=== PATIENT | female | born 1995 | race Caucasian/White ===

== ENCOUNTER 2016-11-13 23:37 | Emergency (ER) | payer SELFPAY ==
[2016-11-13] MEDS ORDERED: Pantoprazole 40 MG Vial IVPUSH ONE (23:44)
[2016-11-13] MEDS ORDERED: Sodium Chloride 0.9% 1,000 ML IV ONE (23:44)
--- NOTE | 2016-11-13 23:44 | EDM.PDOC ---
ED HPI GENERAL MEDICAL PROBLEM - General Stated Complaint: PT HAS STOMACH PAINS Time Seen by Provider: 11/13/16 23:43 Source of Information: Reports: Patient - History of Present Illness INITIAL COMMENTS - FREE TEXT/NARRATIVE: HISTORY AND PHYSICAL: History of present illness: [] Patient presents with diffuse abdominal pain she rates 5/10 on arrival, pain had resolved by discharge 0/10 She is sedated today since her last bowel movement no fever nausea vomiting chills sweats chest pain shortness breath headache dizziness or palpitations no urine symptoms Review of systems: As per history of present illness and below otherwise all systems reviewed and negative. Past medical history: As per history of present illness and as reviewed below otherwise noncontributory. Surgical history: As per history of present illness and as reviewed below otherwise noncontributory. Social history: No reported history of drug or alcohol abuse. Family history: As per history of present illness and as reviewed below otherwise noncontributory. Physical exam: HEENT: Atraumatic, normocephalic, pupils reactive, negative for conjunctival pallor or scleral icterus, mucous membranes moist, throat clear, neck supple, nontender, trachea midline. Lungs: Clear to auscultation, breath sounds equal bilaterally, chest nontender. Heart: S1S2, regular, negative for clicks, rubs, or JVD. Abdomen: Soft, nondistended, patient was tender in the right lower quadrant no guarding or rebound tenderness Negative for masses or hepatosplenomegaly. Negative for costovertebral tenderness. Pelvis: Stable nontender. Genitourinary: Deferred. Rectal: Deferred. Extremities: Atraumatic, negative for cords or calf pain. Neurovascular unremarkable. Neuro: Awake, alert, oriented. Cranial nerves II through XII unremarkable. Cerebellum unremarkable. Motor and sensory unremarkable throughout. Exam nonfocal. Diagnostics: [] Lab as below CT abdomen pelvis with contrast Therapeutics: [] 1 L normal saline bolus Protonix 80 mg IV Uwif-[id number]-avynozd symptomatic bowel care discussed At term double strength by mouth twice a day #20 no refill Impression: [] Retained stool in ascending colon Clinically mesenteric adenitis-with supporting evidence on CT Definitive disposition and diagnosis as appropriate pending reevaluation and review of above. abdomen Pain Score (Numeric/FACES): 6 - Related Data Allergies Allergy/AdvReac Type Severity Reaction Status Date / Time venom-honey bee Allergy Swelling Verified 11/13/16 23:47 [bee venom (honey bee)] Home Meds: Home Meds . [No Known Home Meds] 04/16/15 [History] Past Medical History HEENT History: Reports: None Cardiovascular History: Reports: None Respiratory History: Reports: None Gastrointestinal History: Reports: None Genitourinary History: Reports: Other (See Below) Other Genitourinary History: right breast tissue removal OBSTETRICS GYN History: Reports: None Musculoskeletal History: Reports: None Neurological History: Reports: None Psychiatric History: Reports: Anxiety Other Psychiatric History: Borderline split personality Endocrine/Metabolic History: Reports: None Hematologic History: Reports: None Dermatologic History: Reports: None - Infectious Disease History Infectious Disease History: Reports: Chicken Pox - Past Surgical History HEENT Surgical History: Reports: Adenoidectomy, Tonsillectomy Social & Family History - Family History Family Medical History: Noncontributory - Tobacco Use Smoking Status *Q: Current Some Day Smoker Years of Tobacco use: 6 Packs/Tins Daily: 0.5 - Caffeine Use Caffeine Use: Reports: None - Recreational Drug Use Recreational Drug Use: No ED ROS GENERAL - Review of Systems Review Of Systems: ROS reveals no pertinent complaints other than HPI. ED EXAM, GENERAL - Physical Exam Exam: See Below Course - Vital Signs Last Recorded V/S: Last Vital Signs Temp 36.3 C 11/13/16 23:47 Pulse 95 11/13/16 23:47 Resp 16 11/13/16 23:47 BP 155/81 H 11/13/16 23:47 Pulse Ox 98 11/13/16 23:47 - Orders/Labs/Meds Orders: Active Orders 24 hr Category Date Time Status Abdomen Pelvis w Cont [CT] Stat Exams 11/14/16 00:43 Taken Labs: Laboratory Tests 11/13/16 11/13/16 11/14/16 Range/Units 23:55 23:55 00:50 WBC 12.52 H (4.0-11.0) K/uL RBC 4.73 (4.30-5.90) M/uL Hgb 13.3 (12.0-16.0) g/dL Hct 39.5 (36.0-46.0) % MCV 83.5 (80.0-98.0) fL MCH 28.1 (27.0-32.0) pg MCHC 33.7 (31.0-37.0) g/dL RDW Std Deviation 39.0 (28.0-62.0) fl RDW Coeff of Jose 13 (11.0-15.0) % Plt Count 298 (150-400) K/uL MPV 10.10 (7.40-12.00) fL Neut % (Auto) 73.7 (48.0-80.0) % Lymph % (Auto) 20.0 (16.0-40.0) % Morris % (Auto) 5.8 (0.0-15.0) % Eos % (Auto) 0.3 (0.0-7.0) % Baso % (Auto) 0.2 (0.0-1.5) % Neut # (Auto) 9.2 H (1.4-5.7) K/uL Lymph # (Auto) 2.5 H (0.6-2.4) K/uL Morris # (Auto) 0.7 (0.0-0.8) K/uL Eos # (Auto) 0.0 (0.0-0.7) K/uL Baso # (Auto) 0.0 (0.0-0.1) K/uL Nucleated RBC % 0.0 /100WBC Nucleated RBCs # 0 K/uL Sodium 140 (136-146) mmol/L Potassium 3.4 L (3.5-5.1) mmol/L Chloride 109 (98-110) mmol/L Carbon Dioxide 20 L (21-31) mmol/L BUN 13 (6.0-23.0) mg/dL Creatinine 0.8 (0.6-1.5) mg/dL Est Cr Clr Drug Dosing 105.01 mL/min Estimated GFR (MDRD) > 60.0 ml/min Glucose 141 H (60-110) mg/dL Calcium 9.4 (8.8-10.8) mg/dL Total Bilirubin 0.3 (0.1-1.5) mg/dL AST 13 (5-40) IU/L ALT 13 (8-54) IU/L Alkaline Phosphatase 76 (40-150) Total Protein 7.2 (6.0-8.0) g/dL Albumin 4.2 (3.5-5.0) g/dL Globulin 3.0 (2.0-3.5) g/dL Albumin/Globulin Ratio 1.4 (1.3-2.8) Amylase 33 (10-90) U/L Lipase < 8 (7-80) U/L Urine Color YELLOW Urine Appearance CLEAR Urine pH 6.0 (5.0-8.0) Ur Specific [place] 1.015 (1.001-1.035) Urine Protein NEGATIVE (NEGATIVE) mg/dL Urine Glucose (UA) NEGATIVE (NEGATIVE) mg/dL Urine Ketones NEGATIVE (NEGATIVE) mg/dL Urine Occult Blood LARGE H (NEGATIVE) Urine Nitrite NEGATIVE (NEGATIVE) Urine Bilirubin NEGATIVE (NEGATIVE) Urine Urobilinogen 0.2 (<2.0) EU/dL Ur Leukocyte Esterase TRACE (NEGATIVE) Urine RBC 90-100 (0-2/HPF) Urine WBC 2-3 (0-5/HPF) Ur Epithelial Cells FEW (NONE-FEW) Urine Bacteria FEW (NEGATIVE) Urine Mucus LIGHT (NONE-MOD) Urine HCG, Qual (NEGATIVE) 11/14/16 Range/Units 00:50 WBC (4.0-11.0) K/uL RBC (4.30-5.90) M/uL Hgb (12.0-16.0) g/dL Hct (36.0-46.0) % MCV (80.0-98.0) fL MCH (27.0-32.0) pg MCHC (31.0-37.0) g/dL RDW Std Deviation (28.0-62.0) fl RDW Coeff of Jose (11.0-15.0) % Plt Count (150-400) K/uL MPV (7.40-12.00) fL Neut % (Auto) (48.0-80.0) % Lymph % (Auto) (16.0-40.0) % Morris % (Auto) (0.0-15.0) % Eos % (Auto) (0.0-7.0) % Baso % (Auto) (0.0-1.5) % Neut # (Auto) (1.4-5.7) K/uL Lymph # (Auto) (0.6-2.4) K/uL Morris # (Auto) (0.0-0.8) K/uL Eos # (Auto) (0.0-0.7) K/uL Baso # (Auto) (0.0-0.1) K/uL Nucleated RBC % /100WBC Nucleated RBCs # K/uL Sodium (136-146) mmol/L Potassium (3.5-5.1) mmol/L Chloride (98-110) mmol/L Carbon Dioxide (21-31) mmol/L BUN (6.0-23.0) mg/dL Creatinine (0.6-1.5) mg/dL Est Cr Clr Drug Dosing mL/min Estimated GFR (MDRD) ml/min Glucose (60-110) mg/dL Calcium (8.8-10.8) mg/dL Total Bilirubin (0.1-1.5) mg/dL AST (5-40) IU/L ALT (8-54) IU/L Alkaline Phosphatase (40-150) Total Protein (6.0-8.0) g/dL Albumin (3.5-5.0) g/dL Globulin (2.0-3.5) g/dL Albumin/Globulin Ratio (1.3-2.8) Amylase (10-90) U/L Lipase (7-80) U/L Urine Color Urine Appearance Urine pH (5.0-8.0) Ur Specific [place] (1.001-1.035) Urine Protein (NEGATIVE) mg/dL Urine Glucose (UA) (NEGATIVE) mg/dL Urine Ketones (NEGATIVE) mg/dL Urine Occult Blood (NEGATIVE) Urine Nitrite (NEGATIVE) Urine Bilirubin (NEGATIVE) Urine Urobilinogen (<2.0) EU/dL Ur Leukocyte Esterase (NEGATIVE) Urine RBC (0-2/HPF) Urine WBC (0-5/HPF) Ur Epithelial Cells (NONE-FEW) Urine Bacteria (NEGATIVE) Urine Mucus (NONE-MOD) Urine HCG, Qual NEGATIVE (NEGATIVE) Meds: Medications Discontinued Medications Generic Name Dose Route Start Last Admin Trade Name Freq PRN Reason Stop Dose Admin Sodium Chloride 1,000 mls @ 999 mls/hr 11/13/16 23:44 11/13/16 23:56 Normal Saline IV 11/14/16 00:44 999 mls/hr STAT ONE Administration Iopamidol 100 ml 11/14/16 01:09 11/14/16 01:34 Isovue-370 (76%) IVPUSH 11/14/16 01:10 100 ml ONETIME STA Administration Pantoprazole Sodium 80 mg 11/13/16 23:44 11/13/16 23:56 Protonix Iv IVPUSH 11/13/16 23:45 80 mg .BOLUS ONE Administration Departure - Departure Time of Disposition: 02:08 Disposition: Home, Self-Care 01 Condition: good Clinical Impression: Mesenteric adenitis Abdominal pain Qualifiers: Abdominal location: right lower quadrant Qualified Code(s): R10.31 - Right lower quadrant pain - Discharge Information Additional Instructions: Return if symptoms persist or worsen or fever nausea vomiting chills sweats despite antibiotics Again MiraLax 17 g daily may benefit Gpwu-wjw-zkfafty treatments such as fleets enemas, glycerin suppositories to be used as needed Followup with primary care in 2 weeks sooner as needed Fabiola Tyson [facility] - Primary Care [address] [place] [id number] The following information is given to patients seen in the emergency department who are being discharged to home. This information is to outline your options for follow-up care. We provide all patients seen in our emergency department with a follow-up referral. The need for follow-up, as well as the timing and circumstances, are variable depending upon the specifics of your emergency department visit. If you don't have a primary care physician on staff, we will provide you with a referral. We always advise you to contact your personal physician following an emergency department visit to inform them of the circumstance of the visit and for follow-up with them and/or the need for any referrals to a consulting specialist. The emergency department will also refer you to a specialist when appropriate. This referral assures that you have the opportunity for follow-up care with a specialist. All of these measure are taken in an effort to provide you with optimal care, which includes your follow-up. Under all circumstances we always encourage you to contact your private physician who remains a resource for coordinating your care. When calling for follow-up care, please make the office aware that this follow-up is from your recent emergency room visit. If for any reason you are refused follow-up, please contact the [facility] emergency department at and asked to speak to the emergency department charge nurse. - My Orders Last 24 Hours: My Active Orders 11/14/16 00:43 Abdomen Pelvis w Cont [CT] Stat - Assessment/Plan Last 24 Hours: My Active Orders 11/14/16 00:43 Abdomen Pelvis w Cont [CT] Stat
[2016-11-14 00:35] LABS: CHLORIDE,CL 109 mmol/L (98-110); SODIUM,NA 140 mmol/L (136-146)
[2016-11-14] MEDS ORDERED: Iopamidol 755 Mg/ML 100 ML Bottle IVPUSH STA (01:09)
[2016-11-14] MEDS ORDERED: Sulfamethoxazole/Trimethoprim 800-160 MG Tab PO ONE (02:10)
[2016-11-14 02:29] VITALS: BP 133/74
--- NOTE | 2016-11-14 12:16 | CT ---
EXAM DATE: 11/13/16 PATIENT'S AGE: 21 Patient: LIZZY JAMES Facility: [place], [place] Site . Site : 1995 Study: CT Abdomen/Pelvis [id number] 1:34:22 AM Ordering Physician: Swetha Barth Final Report: INDICATION: Right lower quadrant pain TECHNIQUE: CT abdomen and pelvis acquired with IV contrast. COMPARISON: 04/16/2015 FINDINGS: Lower chest: Unremarkable. Liver: Unremarkable. Spleen: Unremarkable. Pancreas: Unremarkable. Gallbladder and bile ducts: Unremarkable. Kidneys: Unremarkable. Adrenal glands: Unremarkable. GI tract: Retained stool involving the cecum and ascending colon. . Appendix is normal. Vascular structures: Unremarkable. Lymph nodes: Subcentimeter lymph nodes right lower quadrant. Miscellaneous: Unremarkable. No free air or significant free fluid. Pelvic Organs: Unremarkable. Bones: Unremarkable for age. IMPRESSION: Normal appendix. Retained stool involving the cecum and ascending colon. Sub centimeters lymph nodes right lower quadrant. Correlate with mesenteric adenitis clinically. Dictated by Sincere Buckley MD @ 11/14/2016 1:52:39 AM Dictated by: Sincere Buckley MD @ 11/14/2016 01:52:50 (Electronic Signature) Report Signed by Proxy. [facility]
== END 2016-11-14 02:30 | disposition home or self-care (01) ==
LOC: MW.ED 23:37
DX: I88.0 Nonspecific mesenteric lymphadenitis (principal); K59.00 Constipation, unspecified; F17.210 Nicotine dependence, cigarettes, uncomplicated; Z91.030 Bee allergy status; Z98.890 Other specified postprocedural states
CPT/HCPCS: 36415; 74177; 80053; 81001; 81025; 82150; 83690; 85025; 96361; 96374; 99284; C9113; J7040; Q9967

== ENCOUNTER 2019-01-30 15:52 | Inpatient (IN) | payer BC ==
[2019-01-30] MEDS ORDERED: Methylergonovine 0.2 MG/1 ML Amp IM PRN (16:55)
[2019-01-30] MEDS ORDERED: Tranexamic Acid 1,000 MG in Sodium Chloride 0.9% 100 ML IV PRN (16:55)
[2019-01-30] MEDS ORDERED: Sodium Chloride 0.9% 10 ML SDV IV PRN (16:55)
[2019-01-30] MEDS ORDERED: Butorphanol 1 MG/ML SDV IVPUSH PRN (16:55)
[2019-01-30] MEDS ORDERED: Sodium Chloride 0.9% 10 ML Syringe FLUSH PRN (16:55)
[2019-01-30] MEDS ORDERED: Misoprostol 200 MCG Tab PO PRN (16:55)
[2019-01-30] MEDS ORDERED: Nalbuphine 10 MG/1 ML Vial IVPUSH PRN (16:55)
[2019-01-30] MEDS ORDERED: Lidocaine 1% 50 ML MDV INJECT PRN (16:55)
[2019-01-30] MEDS ORDERED: Sodium Chloride 0.9% 2.5 ML Syringe FLUSH PRN (16:55)
[2019-01-30] MEDS ORDERED: Carboprost Tromethamine 250 MCG/1 ML Amp IM PRN (16:55)
[2019-01-30] MEDS ORDERED: Water For Irrigation,Sterile 1,000 ML Container IRR PRN (16:55)
[2019-01-30] MEDS ORDERED: Oxytocin/0.9 % Sodium Chloride 30 UNIT/500 ML BAG IV SCH (17:00)
--- NOTE | 2019-01-30 17:11 | PCM.LDHP ---
L&D History of Present Illness - General Date of Service: 01/30/19 Admit Problem/Dx: Patient Status Order with Admit Dx/Problem 01/30/19 16:55 Patient Status [ADT] Routine Admission Diagnosis/Problem Admission Diagnosis/Problem - planned 01/30/19 17:06 23 yo EDC 02/06/2019 39 0/7wks, comes due to SROM clear fluid at 1400 today. O+, RI, GBS pos. Declines any antibiotic for the GBS. Disc the risk and benefits of them for the health of her . Source of Information: Patient History Limitations: Reports: No Limitations - History of Present Illness Timing/Duration: Reports: minutes: Pain Score: 0 Improves with: Reports: None Worsens with: Reports: None Associated Symptoms: Reports: vaginal fluid - Related Data Allergies/Adverse Reactions: Allergies Allergy/AdvReac Type Severity Reaction Status Date / Time venom-honey bee Allergy Swelling Verified 01/30/19 16:49 [bee venom (honey bee)] Home Medications: Home Meds . 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 Musculoskeletal History: Reports: None Neurological History: Reports: None Psychiatric History: Reports: Anxiety Other Psychiatric History: Borderline split personality Endocrine/Metabolic History: Reports: None Hematologic History: Reports: None Immunologic History: Reports: None Oncologic (Cancer) History: Reports: None Dermatologic History: Reports: None - Infectious Disease History Infectious Disease History: Reports: Chicken Pox - Past Surgical History HEENT Surgical History: Reports: Adenoidectomy, Tonsillectomy Social & Family History - Family History Family Medical History: Noncontributory - Caffeine Use Caffeine Use: Reports: None H&P Review of Systems - Review of Systems: Review Of Systems: See Below General: Reports: No Symptoms HEENT: Reports: No Symptoms Pulmonary: Reports: No Symptoms Cardiovascular: Reports: No Symptoms Gastrointestinal: Reports: No Symptoms Genitourinary: Reports: No Symptoms Musculoskeletal: Reports: No Symptoms Skin: Reports: No Symptoms Psychiatric: Reports: No Symptoms Neurological: Reports: No Symptoms Hematologic/Lymphatic: Reports: No Symptoms Immunologic: Reports: No Symptoms L&D Exam - Exam Exam: See Below - Vital Signs Weight: 123.377 kg - OB Specific Contraction Intensity: Mild Movement: Active Heart Tones: Present Heart Tones per Min: 150 Heart Rate (FHR) Variability: Moderate (6-25 bmp) Presentation: Vertex - Townsend Score Townsend Score Cervix Position: Anterior Townsend Score Consistency: Soft Townsend Score Effacement: >80% Townsend Score Dilation: 3-4 cm Townsend Score 's Station: -2 Townsend Score Total: 10 - Exam General: Alert, Oriented, Cooperative HEENT: Hearing Intact Lungs: Normal Respiratory Effort GI/Abdominal Exam: Soft, Non-Tender Rectal Exam: Deferred Genitourinary: Deferred, Cervical fluid Back Exam: Full Range of Motion Extremities: Normal Range of Motion, Non-Tender, No Pedal Edema Skin: Warm, Dry, Intact Neurological: Cranial Nerves Intact, Strength Equal Bilateral, Normal Speech, Normal Tone Psychiatric: Alert, Normal Affect, Normal Mood - Problem List (1) Supervision of normal IUP (intrauterine ) in primigravida SNOMED Code(s): 95332044, 788546237, 401720784, 752569154 ICD Code: Z34.00 - ENCNTR FOR SUPRVSN OF NORMAL FIRST , UNSP TRIMESTER Status: Acute Priority: High Current Visit: Yes Qualifiers: Trimester: third trimester Qualified Code(s): Z34.03 - Encounter for supervision of normal first , third trimester (2) SROM (spontaneous rupture of membranes) SNOMED Code(s): 975577740 ICD Code: [id number] - Status: Acute Priority: High Current Visit: Yes Problem List Initiated/Reviewed/Updated: Yes Orders Last 24hrs: Active Orders 24 hr Category Date Time Status Patient Status [ADT] Routine ADT 01/30/19 16:55 Active Heart Tones [RC] CONTINUOUS Care 01/30/19 16:55 Active Non Stress Test [RC] PER UNIT ROUTINE Care 01/30/19 16:55 Active May Shower [RC] ASDIRECTED Care 01/30/19 16:55 Active Notify Provider [RC] PRN Care 01/30/19 16:55 Active Up ad Radha [RC] ASDIRECTED Care 01/30/19 16:55 Active Vaginal Exam [RC] PRN Care 01/30/19 16:55 Active Vital Signs [RC] PER UNIT ROUTINE Care 01/30/19 16:55 Active Regular Diet [DIET] Diet 01/31/19 Breakfast Active CBC W/O DIFF,HEMOGRAM [HEME] Routine Lab 01/30/19 16:55 Ordered TYPE AND SCREEN [BBK] Routine Lab 01/30/19 16:55 Ordered Butorphanol [Stadol] Med 01/30/19 16:55 Ordered 1 mg IVPUSH Q1H PRN Carboprost Tromethamine [Hemabate DS] Med 01/30/19 16:55 Ordered 250 mcg IM ASDIRECTED PRN Lactated Ringers [Ringers, Lactated] 1,000 ml Med 01/30/19 17:00 Ordered IV ASDIRECTED Lidocaine 1% [Xylocaine 1%] Med 01/30/19 16:55 Ordered 50 ml INJECT ONETIME PRN Methylergonovine [Methergine] Med 01/30/19 16:55 Ordered 0.2 mg IM ASDIRECTED PRN Nalbuphine [Nubain] Med 01/30/19 16:55 Ordered 10 mg IVPUSH Q1H PRN Oxytocin/0.9 % Sodium Chloride [Oxytocin 30 Unit/500 ML Med 01/30/19 17:00 Ordered -NS] 30 unit in 500 ml IV TITRATE Sodium Chloride 0.9% [Normal Saline] Med 01/30/19 16:55 Ordered 10 ml IV ASDIRECTED PRN Sodium Chloride 0.9% [Saline Flush] Med 01/30/19 16:55 Ordered 10 ml FLUSH ASDIRECTED PRN Sodium Chloride 0.9% [Saline Flush] Med 01/30/19 16:55 Ordered 2.5 ml FLUSH ASDIRECTED PRN Tranexamic Acid [Cyklokapron] 1,000 mg Med 01/30/19 16:55 Ordered Sodium Chloride 0.9% [Normal Saline] 100 ml IV ONETIME Water For Irrigation,Sterile [Sterile Water for Med 01/30/19 16:55 Ordered Irrigation] 1,000 ml IRR ASDIRECTED PRN miSOPROStol [Cytotec] Med 01/30/19 16:55 Ordered 200 mcg PO ONETIME PRN Scalp Electrode [WOMSER] Per Unit Routine Oth 01/30/19 16:55 Ordered Peripheral IV Insertion Adult [OM.PC] Routine Oth 01/30/19 16:55 Ordered Resuscitation Status Routine Resus Stat 01/30/19 16:55 Ordered Medication Orders Butorphanol Tartrate (Stadol) 1 mg IVPUSH Q1H PRN PRN Reason: Pain Carboprost Tromethamine (Hemabate Ds) 250 mcg IM ASDIRECTED PRN PRN Reason: Post Hemorrhage Lactated Ringer's (Ringers, Lactated) 1,000 mls @ 150 mls/hr IV ASDIRECTED ELOY Oxytocin/Sodium Chloride (Oxytocin 30 Unit/500 Ml-Ns) 30 unit in 500 mls @ 500 mls/hr IV TITRATE ELOY Tranexamic Acid 1,000 mg/ (Sodium Chloride) 110 mls @ 660 mls/hr IV ONETIME PRN PRN Reason: Bleeding Lidocaine HCl (Xylocaine 1%) 50 ml INJECT ONETIME PRN PRN Reason: Laceration repair Methylergonovine Maleate (Methergine) 0.2 mg IM ASDIRECTED PRN PRN Reason: Post Hemorrhage Misoprostol (Cytotec) 200 mcg PO ONETIME PRN PRN Reason: Post Hemorrhage Nalbuphine HCl (Nubain) 10 mg IVPUSH Q1H PRN PRN Reason: Pain (severe 7-10) Sodium Chloride (Saline Flush) 10 ml FLUSH ASDIRECTED PRN PRN Reason: Keep Vein Open Sodium Chloride (Saline Flush) 2.5 ml FLUSH ASDIRECTED PRN PRN Reason: Keep Vein Open Sodium Chloride (Normal Saline) 10 ml IV ASDIRECTED PRN PRN Reason: IV Use Sterile Water (Sterile Water For Irrigation) 1,000 ml IRR ASDIRECTED PRN PRN Reason: delivery Assessment/Plan Comment:: Labor A: 23 yo EDC 02/06/2019 39 0/7wks, comes due to SROM clear fluid at 1400 today. O+, RI, GBS pos. Declines any antibiotic for the GBS. Disc the risk and benefits of them for the health of her . P: Admit, pain mngt prn, anticipate , Dr Ortega updated
[2019-01-30] MEDS: Lactated Ringers 1,000 ML IV SCH (21:59)
[2019-01-30] MEDS ORDERED: Ropivacaine 0.2% 2 MG/ML 20 ML SDV ONE (23:40)
[2019-01-30] MEDS ORDERED: fentaNYL 100 MCG/2 ML SDV ONE (23:40)
[2019-01-30] MEDS ORDERED: Ropivacaine HCl/PF 100 ML ONE (23:41)
[2019-01-31] MEDS: Lactated Ringers 1,000 ML IV SCH ×2 (00:13→03:52)
--- NOTE | 2019-01-31 00:27 | PCM.PREANE ---
Preanesthetic Assessment - Procedure Proposed Procedure: Labor Epidural - Anesthesia/Transfusion/Family Hx Anesthesia History: Prior Anesthesia Without Reaction Family History of Anesthesia Reaction: No Transfusion History: No Prior Transfusion(s) Intubation History: Unknown - Review of Systems General: No Symptoms Pulmonary: No Symptoms Cardiovascular: No Symptoms Gastrointestinal: No Symptoms Neurological: No Symptoms Other: Reports: None, Anxiety - Physical Assessment NPO Status Date: 01/31/19 NPO Status Time: 23:00 (Clear Liquids) Pulse: 99 O2 Sat by Pulse Oximetry: 99 Respiratory Rate: 20 Blood Pressure: 135/79 Temperature: 36.8 C Height: 1.68 m Weight: 123.377 kg ASA Class: 2 Mental Status: Alert & Oriented x3 Airway Class: Mallampati = 2 Dentition: Reports: Normal Dentition ROM/Head Extension: Full Lungs: Clear to Auscultation Cardiovascular: Regular Rate - Lab Values: Laboratory Last Values WBC 24.09 K/uL (4.0-11.0) H 01/30/19 17:41 RBC 4.17 M/uL (4.30-5.90) L 01/30/19 17:41 Hgb 11.7 g/dL (12.0-16.0) L 01/30/19 17:41 Hct 34.8 % (36.0-46.0) L 01/30/19 17:41 MCV 83.5 fL (80.0-98.0) 01/30/19 17:41 MCH 28.1 pg (27.0-32.0) 01/30/19 17:41 MCHC 33.6 g/dL (31.0-37.0) 01/30/19 17:41 RDW Std Deviation 42.1 fl (28.0-62.0) 01/30/19 17:41 RDW Coeff of Jose 14 % (11.0-15.0) 01/30/19 17:41 Plt Count 368 K/uL (150-400) 01/30/19 17:41 MPV 9.90 fL (7.40-12.00) 01/30/19 17:41 Nucleated RBC % 0.0 /100WBC 01/30/19 17:41 Nucleated RBCs # 0 K/uL 01/30/19 17:41 Blood Type O POSITIVE 01/30/19 17:41 Antibody Screen NEGATIVE 01/30/19 17:41 - Allergies Allergies/Adverse Reactions: Allergies Allergy/AdvReac Type Severity Reaction Status Date / Time venom-honey bee Allergy Swelling Verified 01/30/19 16:49 [bee venom (honey bee)] - Blood Product(s) Available: None - Anesthesia Plan Free Text/Narrative:: Labor Epidural Pre-Op Medication Ordered: None PreAnesthesia Questionnaire HEENT History: Reports: None Cardiovascular History: Reports: None Respiratory History: Reports: None Gastrointestinal History: Reports: None Genitourinary History: Reports: Other (See Below) Other Genitourinary History: right breast tissue removal 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 Musculoskeletal History: Reports: None Neurological History: Reports: None Psychiatric History: Reports: Anxiety Other Psychiatric History: Borderline split personality Endocrine/Metabolic History: Reports: None Hematologic History: Reports: None Immunologic History: Reports: None Oncologic (Cancer) History: Reports: None Dermatologic History: Reports: None - Infectious Disease History Infectious Disease History: Reports: Chicken Pox - Past Surgical History HEENT Surgical History: Reports: Adenoidectomy, Tonsillectomy - SUBSTANCE USE Smoking Status *Q: Former Smoker Second Hand Smoke Exposure: No Recreational Drug Use History: No - HOME MEDS Home Medications: Home Meds . [No Known Home Meds] 04/16/15 [History] - CURRENT (IN HOUSE) MEDS Current Meds: Current Medications Butorphanol Tartrate (Stadol) 1 mg IVPUSH Q1H PRN PRN Reason: Pain Carboprost Tromethamine (Hemabate Ds) 250 mcg IM ASDIRECTED PRN PRN Reason: Post Hemorrhage Lactated Ringer's (Ringers, Lactated) 1,000 mls @ 150 mls/hr IV ASDIRECTED [facility] Last Admin: 01/31/19 00:13 Dose: 999 mls/hr Oxytocin/Sodium Chloride (Oxytocin 30 Unit/500 Ml-Ns) 30 unit in 500 mls @ 500 mls/hr IV TITRATE [facility] Tranexamic Acid 1,000 mg/ (Sodium Chloride) 110 mls @ 660 mls/hr IV ONETIME PRN PRN Reason: Bleeding Lidocaine HCl (Xylocaine 1%) 50 ml INJECT ONETIME PRN PRN Reason: Laceration repair Methylergonovine Maleate (Methergine) 0.2 mg IM ASDIRECTED PRN PRN Reason: Post Hemorrhage Misoprostol (Cytotec) 200 mcg PO ONETIME PRN PRN Reason: Post Hemorrhage Nalbuphine HCl (Nubain) 10 mg IVPUSH Q1H PRN PRN Reason: Pain (severe 7-10) Last Admin: 01/30/19 21:51 Dose: 10 mg Sodium Chloride (Saline Flush) 10 ml FLUSH ASDIRECTED PRN PRN Reason: Keep Vein Open Sodium Chloride (Saline Flush) 2.5 ml FLUSH ASDIRECTED PRN PRN Reason: Keep Vein Open Sodium Chloride (Normal Saline) 10 ml IV ASDIRECTED PRN PRN Reason: IV Use Sterile Water (Sterile Water For Irrigation) 1,000 ml IRR ASDIRECTED PRN PRN Reason: delivery Discontinued Medications Fentanyl (Sublimaze) Confirm Administered Dose 100 mcg .ROUTE .STK-MED ONE Stop: 01/30/19 23:41 Ropivacaine (Naropin 0.2%) Confirm Administered Dose 100 mls @ as directed .ROUTE .STK-MED ONE Stop: 01/30/19 23:42 Ropivacaine (Naropin 0.2%) Confirm Administered Dose 20 ml .ROUTE .STK-MED ONE Stop: 01/30/19 23:41
[2019-01-31] MEDS ORDERED: Terbutaline 1 MG/ML SDV SUBCUT PRN (00:30)
[2019-01-31] MEDS ORDERED: Oxytocin/0.9 % Sodium Chloride 30 UNIT/500 ML BAG IV SCH (00:30)
--- NOTE | 2019-01-31 00:42 | PCM.PRNOTE ---
- Free Text/Narrative Note: Requested for Labor Epidural, , active labor, dilated 4cm. Pain 9. Anxious about needles. 1 dose Nubain earlier. Discussed, ? answered, understands and accepts, permit signed. 235 Chloroprep. Localized with 4ml 1% lidocaine @ L3-4. 235 Needle, space ID'd with LAURIE, saline/air mix. Confirmed with 3ml saline. 235 Catheter to 9 cm without issues. 235 Test dose with 5ml 1.5% lidi with 1:200k epi added. TEST NEGATIVE. occlusive Drsg applied. 0005 Bolus given over 6 minutes. Naropin 0.2% 8ml + Fentanyl 100mcg. -asp. Tolerated well. 0015 Pain 9 down to 1. 0042 Gtt started, 8ml/hr with 4ml bolus q15. Tolerated well. No problems noted.
[2019-01-31] MEDS ORDERED: Acetaminophen 500 MG Tab PO ONE (03:40)
[2019-01-31] MEDS ORDERED: Ampicillin 2 GM in Sodium Chloride 0.9% 100 ML IV ONE (03:41)
[2019-01-31] MEDS ORDERED: Acetaminophen 500 MG Tab ONE (03:45)
[2019-01-31] MEDS ORDERED: Ampicillin 1 GM in Sodium Chloride 0.9% 50 ML IV SCH (03:45)
[2019-01-31] MEDS ORDERED: Ampicillin 2 GM AdvVial IV ONE (03:45)
[2019-01-31] MEDS ORDERED: Sodium Chloride 0.9% 100 ML ONE (03:45)
[2019-01-31] MEDS ORDERED: Bupivacaine 0.5% 10 ML SDV ONE ×2 (07:24→09:00)
[2019-01-31] MEDS ORDERED: Ondansetron 4 MG/2 ML SDV ONE (09:22)
[2019-01-31] MEDS ORDERED: fentaNYL 100 MCG/2 ML SDV ONE (09:26)
[2019-01-31] MEDS ORDERED: Morphine PF 10 MG/10 ML SDV ONE (09:30)
[2019-01-31] MEDS ORDERED: Midazolam 1 MG/ML 2 ML SDV ONE (09:37)
[2019-01-31] MEDS ORDERED: Octyl 2-Cyanoacrylate 1 Tube ONE ×2 (09:47)
[2019-01-31] MEDS ORDERED: Ibuprofen 800 MG Tab PO PRN (09:49)
[2019-01-31] MEDS ORDERED: Bisacodyl 10 MG Supp RECTAL PRN (09:49)
[2019-01-31] MEDS ORDERED: diphenhydrAMINE 50 MG/ML SDV IVPUSH PRN ×2 (09:49→09:59)
[2019-01-31] MEDS ORDERED: Acetaminophen/oxyCODONE 325-5 MG Tab PO PRN ×2 (09:49)
[2019-01-31] MEDS ORDERED: Ondansetron 4 MG/2 ML SDV IVPUSH PRN (09:49)
[2019-01-31] MEDS ORDERED: Lanolin 100% Cream 7 GM Tube TOP PRN (09:49)
--- NOTE | 2019-01-31 09:52 | PCM.OPNOTE ---
- General Post-Op/Procedure Note Date of Surgery/Procedure: 01/31/19 Operative Procedure(s): Emergency C/section. Post-Op Diagnosis: Same Anesthesia Technique: Epidural Primary Surgeon: Feng Ortega Booking Prizer: Aleja Mitchell EBL in mLs: 700 Complications: None Condition: Good
[2019-01-31] MEDS ORDERED: Nalbuphine 10 MG/1 ML Vial IVPUSH PRN (09:59)
[2019-01-31] MEDS ORDERED: Naloxone 0.4 MG/ML Syringe IVPUSH PRN (09:59)
[2019-01-31] MEDS ORDERED: Lactated Ringers 1,000 ML IV SCH (10:00)
[2019-01-31] MEDS: Ketorolac 30 MG/ML SDV IVPUSH SCH ×3 (10:26→22:00)
[2019-01-31] MEDS ORDERED: 50% Dextrose in Water 50 ML Syringe IVPUSH PRN (10:32)
[2019-01-31] MEDS ORDERED: EPINEPHrine 1:10,000 1 MG/10 ML Syringe IVPUSH PRN (10:32)
[2019-01-31] MEDS ORDERED: Atropine 0.1 MG/ML 10 ML Syringe IVPUSH PRN ×2 (10:32)
[2019-01-31] MEDS ORDERED: Albuterol 0.083% 2.5 MG/3 ML Neb Soln NEB PRN (10:32)
[2019-01-31] MEDS: fentaNYL 100 MCG/2 ML SDV IVPUSH PRN ×2 (10:39→10:45)
--- NOTE | 2019-01-31 11:57 | OR ---
SURGEON: Feng Ortega MD DATE OF PROCEDURE: PREOPERATIVE DIAGNOSES: Intrauterine at 39 weeks plus, spontaneous rupture of the membrane, non-reassuring heart rate, repeat late deceleration. POSTOPERATIVE DIAGNOSES: Intrauterine at 39 weeks plus, spontaneous rupture of the membrane, non-reassuring heart rate, repeat late deceleration. OPERATION PERFORMED: Emergency low transverse section. PRIMARY SURGEON: Feng Ortega MD. NURSE EDUCATOR: Aleja Mitchell CNM. ANESTHESIA: Epidural, Maximus Felipe. ESTIMATED BLOOD LOSS: 700 mL. COMPLICATIONS: None. FINDINGS: Male fetus with one tight nuchal cord. Clear amniotic fluid. Normal uterus, tubes, and ovaries. INDICATION FOR SURGERY: This patient is followed in our practice. She is 39 plus weeks. She had spontaneous rupture of the membrane yesterday. Her GBS status was positive. Initially, she declined antibiotic, but then later on when she spiked temperature, she was started on antibiotic, ampicillin and gentamicin, and the patient progressed to 7 to 8. She started having repeat late deceleration with every single contraction and flat variability. It was deemed that heart rate is nonreassuring, and we decided to do an emergency section. PROCEDURE IN DETAIL: The patient was brought to the OR, properly identified, and after adequate level of epidural anesthesia, with a Simental catheter in the bladder, the patient was prepped and draped in sterile fashion as usual. Low transverse Pfannenstiel skin incision done. Guadalupe's fascia and rectus fascia were opened in direction of the incision utilizing the electrocautery and the rectus fascia was dissected downwards and upwards to accommodate the head. The peritoneal cavity was entered and the bladder flap was raised in the usual manner pushing the bladder away from the lower uterine segment and then low transverse uterine incision was done and the head was deep in the pelvis. I reached down, and I pulled the head and the delivery of the head was accomplished without any problem. One tight nuchal cord was noted and the fetus after resuscitation was crying and score at this time is not available, so is the weight. The placenta delivered spontaneous, complete, and intact and repair of the lower uterine segment was done with 2-0 Vicryl interlocking in 2 layers. Reperitonealization done with 3- 0 Vicryl continuous and the peritoneal cavity evacuated completely from all blood and blood clot and closed with 3-0 Vicryl continuous. The rectus fascia was closed with #1 PDS double strand continuous, Guadalupe's fascia with 3-0 Vicryl continuous, and skin closed with Stratafix sutures on Gibran needle in a subcuticular fashion and Dermabond. Instrument and sponge count was correct. The patient tolerated the procedure well, went to recovery in stable general condition. BRUCE / RIOS /[id number]
[2019-01-31] MEDS: Ampicillin/Sulbactam Na 3 GM in Sodium Chloride 0.9% 100 ML IV SCH ×2 (12:34→18:17)
[2019-01-31] MEDS ORDERED: Lactated Ringers 500 ML IV ONE (17:20)
[2019-01-31] MEDS: Docusate Sodium 100 MG Cap PO SCH (22:00)
[2019-02-01] MEDS: Ampicillin/Sulbactam Na 3 GM in Sodium Chloride 0.9% 100 ML IV SCH ×2 (00:05→05:57)
[2019-02-01] MEDS: Ketorolac 30 MG/ML SDV IVPUSH SCH ×2 (04:03→10:44)
--- NOTE | 2019-02-01 06:08 | PCM48HPAN ---
Post Anesthesia Note - EVALUATION WITHIN 48HRS OF ANESTHETIC Vital Signs in Normal Range: Yes Patient Participated in Evaluation: Yes Respiratory Function Stable: Yes Airway Patent: Yes Cardiovascular Function Stable: Yes Hydration Status Stable: Yes Pain Control Satisfactory: Yes Nausea and Vomiting Control Satisfactory: Yes Mental Status Recovered: Yes Pulse Rate: 98 SaO2: 98 Resp Rate: 18 Temperature: 98.8 F Blood Pressure: 120/62
[2019-02-01] MEDS: Docusate Sodium 100 MG Cap PO SCH ×2 (08:50→21:42)
--- NOTE | 2019-02-01 10:04 | PCM.PNPP ---
- General Info Date of Service: 02/01/19 Functional Status: Reports: Pain Controlled - Review of Systems General: Reports: No Symptoms HEENT: Reports: No Symptoms Pulmonary: Reports: No Symptoms Cardiovascular: Reports: No Symptoms Gastrointestinal: Reports: No Symptoms Genitourinary: Reports: No Symptoms Musculoskeletal: Reports: No Symptoms Skin: Reports: No Symptoms Neurological: Reports: No Symptoms Psychiatric: Reports: No Symptoms - General Info Date of Service: 02/01/19 - Patient Data Vital Signs - Most Recent: Last Vital Signs Temp 37.1 C 02/01/19 06:08 Pulse 98 02/01/19 06:08 Resp 18 02/01/19 06:08 BP 120/62 02/01/19 06:08 Pulse Ox 98 02/01/19 06:08 Weight - Most Recent: 123.377 kg I&O - Last 24 Hours: Intake & Output 01/31/19 02/01/19 02/01/19 22:59 06:59 14:59 Intake Total 1000 1209 Output Total 245 565 Balance 755 644 Lab Results - Last 24 Hours: Laboratory Results - last 24 hr 02/01/19 Range/Units 05:45 Hgb 9.5 L (12.0-16.0) g/dL Hct 27.9 L (36.0-46.0) % Med Orders - Current: Current Medications Albuterol (Proventil Neb Soln) 2.5 mg NEB ONETIME PRN PRN Reason: Wheezing Atropine Sulfate (Atropine 0.1 Mg/Ml) 0.5 mg IVPUSH ASDIRECTED PRN PRN Reason: Hypo-perfusion Atropine Sulfate (Atropine 0.1 Mg/Ml) 1 mg IVPUSH ASDIRECTED PRN PRN Reason: Hypo-Perfusion Bisacodyl (Dulcolax) 10 mg RECTAL ONETIME PRN PRN Reason: Constipation Butorphanol Tartrate (Stadol) 1 mg IVPUSH Q1H PRN PRN Reason: Pain Carboprost Tromethamine (Hemabate Ds) 250 mcg IM ASDIRECTED PRN PRN Reason: Post Hemorrhage Dextrose/Water (Dextrose 50% In Water) 50 ml IVPUSH ASDIRECTED PRN PRN Reason: Hypoglycemia Diphenhydramine HCl (Benadryl) 25 mg IVPUSH Q6H PRN PRN Reason: Itching or Nausea Docusate Sodium (Colace) 100 mg PO BID [facility] Last Admin: 02/01/19 08:50 Dose: 100 mg Emollient Ointment (Lansinoh Hpa) 0 gm TOP ASDIRECTED PRN PRN Reason: Sore Nipples Epinephrine HCl (Epinephrine 1:10,000) 1 mg IVPUSH ASDIRECTED PRN PRN Reason: ACLS Guidelines Fentanyl (Sublimaze) 50 - 100 mcg IVPUSH Q5M PRN PRN Reason: Pain Last Admin: 01/31/19 10:45 Dose: 50 mcg Lactated Ringer's (Ringers, Lactated) 1,000 mls @ 150 mls/hr IV ASDIRECTED [facility] Last Admin: 01/31/19 03:52 Dose: 150 mls/hr Oxytocin/Sodium Chloride (Oxytocin 30 Unit/500 Ml-Ns) 30 unit in 500 mls @ 500 mls/hr IV TITRATE [facility] Tranexamic Acid 1,000 mg/ (Sodium Chloride) 110 mls @ 660 mls/hr IV ONETIME PRN PRN Reason: Bleeding Oxytocin/Sodium Chloride (Oxytocin 30 Unit/500 Ml-Ns) 30 unit in 500 mls @ 2 mls/hr IV TITRATE [facility]; Protocol Last Titration: 01/31/19 03:33 Dose: 2 munits/min, 2 mls/hr Lactated Ringer's (Ringers, Lactated) 1,000 mls @ 125 mls/hr IV ASDIRECTED [facility] Last Admin: 01/31/19 12:01 Dose: 125 mls/hr Ampicillin Sodium/Sulbactam (Sodium 3 gm/ Sodium Chloride) 100 mls @ 200 mls/ hr IV Q6H [facility] Last Admin: 02/01/19 05:57 Dose: 200 mls/hr Ibuprofen (Motrin) 800 mg PO Q8H PRN PRN Reason: mild pain or fever Lidocaine HCl (Xylocaine 1%) 50 ml INJECT ONETIME PRN PRN Reason: Laceration repair Methylergonovine Maleate (Methergine) 0.2 mg IM ASDIRECTED PRN PRN Reason: Post Hemorrhage Misoprostol (Cytotec) 200 mcg PO ONETIME PRN PRN Reason: Post Hemorrhage Nalbuphine HCl (Nubain) 10 mg IVPUSH Q1H PRN PRN Reason: Pain (severe 7-10) Last Admin: 01/30/19 21:51 Dose: 10 mg Ondansetron HCl (Zofran) 4 mg IVPUSH Q4H PRN PRN Reason: Nausea/Vomiting Oxycodone/Acetaminophen (Percocet 325-5 Mg) 1 tab PO Q4H PRN PRN Reason: Pain (moderate 4-6) Oxycodone/Acetaminophen (Percocet 325-5 Mg) 2 tab PO Q4H PRN PRN Reason: Pain (moderate 4-6) Sodium Chloride (Saline Flush) 10 ml FLUSH ASDIRECTED PRN PRN Reason: Keep Vein Open Sodium Chloride (Saline Flush) 2.5 ml FLUSH ASDIRECTED PRN PRN Reason: Keep Vein Open Sodium Chloride (Normal Saline) 10 ml IV ASDIRECTED PRN PRN Reason: IV Use Sterile Water (Sterile Water For Irrigation) 1,000 ml IRR ASDIRECTED PRN PRN Reason: delivery Terbutaline Sulfate (Brethine) 0.25 mg SUBCUT ASDIRECTED PRN PRN Reason: Tacysystole Discontinued Medications Acetaminophen (Tylenol Extra Strength) 1,000 mg PO ONETIME ONE Stop: 01/31/19 03:41 Last Admin: 01/31/19 03:58 Dose: 1,000 mg Acetaminophen (Tylenol Extra Strength) Confirm Administered Dose 1,000 mg .ROUTE .STK-MED ONE Stop: 01/31/19 03:46 Last Admin: 01/31/19 20:53 Dose: Not Given Ampicillin Sodium (Ampicillin) Confirm Administered Dose 2 gm IV .STK-MED ONE Stop: 01/31/19 03:46 Last Admin: 01/31/19 20:53 Dose: Not Given Bupivacaine HCl (Sensorcaine-Mpf 0.5%) Confirm Administered Dose 10 ml .ROUTE .STK-MED ONE Stop: 01/31/19 07:25 Last Admin: 01/31/19 20:54 Dose: Not Given Bupivacaine HCl (Sensorcaine-Mpf 0.5%) Confirm Administered Dose 20 ml .ROUTE .STK-MED ONE Stop: 01/31/19 09:01 Last Admin: 01/31/19 20:54 Dose: Not Given Diphenhydramine HCl (Benadryl) 25 mg IVPUSH Q4H PRN PRN Reason: Itching Stop: 02/01/19 10:01 Fentanyl (Sublimaze) Confirm Administered Dose 100 mcg .ROUTE .STK-MED ONE Stop: 01/30/19 23:41 Last Admin: 01/31/19 20:53 Dose: Not Given Fentanyl (Sublimaze) Confirm Administered Dose 100 mcg .ROUTE .STK-MED ONE Stop: 01/31/19 09:27 Ropivacaine (Naropin 0.2%) Confirm Administered Dose 100 mls @ as directed .ROUTE .STK-MED ONE Stop: 01/30/19 23:42 Last Admin: 01/31/19 20:53 Dose: Not Given Ampicillin Sodium 2 gm/ Sodium (Chloride) 100 mls @ 200 mls/hr IV ONETIME ONE Stop: 01/31/19 04:10 Last Admin: 01/31/19 03:59 Dose: 200 mls/hr Ampicillin Sodium 1 gm/ Sodium (Chloride) 50 mls @ 100 mls/hr IV Q4H [facility] Last Admin: 01/31/19 07:34 Dose: 100 mls/hr Sodium Chloride (Normal Saline) Confirm Administered Dose 100 mls @ as directed .ROUTE .STK-MED ONE Stop: 01/31/19 03:46 Last Admin: 01/31/19 20:53 Dose: Not Given Gentamicin Sulfate 80 mg/ (Sodium Chloride) 52 mls @ 100 mls/hr IV Q8H [facility] Last Admin: 01/31/19 08:07 Dose: 100 mls/hr Fentanyl/Bupivacaine HCl (Rlcomhuv-Zsrox-Mm 2 Mcg/Ml-0.125%) Confirm Administered Dose 100 mls @ as directed .ROUTE .STK-MED ONE Stop: 01/31/19 07:25 Last Admin: 01/31/19 20:54 Dose: Not Given Lactated Ringer's (Ringers, Lactated) 500 mls @ 500 mls/hr IV .BOLUS ONE Stop: 01/31/19 18:19 Last Admin: 01/31/19 18:20 Dose: 500 mls/hr Ketorolac Tromethamine (Toradol) 30 mg IVPUSH Q6H [facility] Stop: 02/01/19 10:01 Last Admin: 02/01/19 04:03 Dose: 30 mg Midazolam HCl (Versed 1 Mg/Ml) Confirm Administered Dose 2 mg .ROUTE .STK-MED ONE Stop: 01/31/19 09:38 Morphine Sulfate (Duramorph Pf) Confirm Administered Dose 10 mg .ROUTE .STK-MED ONE Stop: 01/31/19 09:31 Nalbuphine HCl (Nubain) 5 mg IVPUSH Q3H PRN PRN Reason: Pruritis Stop: 02/01/19 10:00 Naloxone HCl (Narcan) 0.1 mg IVPUSH ONETIME PRN PRN Reason: Respiratory Depression Stop: 02/01/19 10:01 Octyl Cyanoacrylate (Dermabond Advance) Confirm Administered Dose 1 applic .ROUTE .STK-MED ONE Stop: 01/31/19 09:48 Last Admin: 01/31/19 20:54 Dose: Not Given Octyl Cyanoacrylate (Dermabond Advance) Confirm Administered Dose 1 applic .ROUTE .STK-MED ONE Stop: 01/31/19 09:48 Last Admin: 01/31/19 20:54 Dose: Not Given Ondansetron HCl (Zofran) Confirm Administered Dose 4 mg .ROUTE .STK-MED ONE Stop: 01/31/19 09:23 Ropivacaine (Naropin 0.2%) Confirm Administered Dose 20 ml .ROUTE .STK-MED ONE Stop: 01/30/19 23:41 Last Admin: 01/31/19 20:53 Dose: Not Given - Infant Interaction Disposition, : Butler in Room with Family Infant Interaction: Holding Infant Feeding: Attempted ; Nursed Fair/Poor Support Person: - Recovery Exam Fundal Tone: Firm Fundal Level: At Umbilicus Fundal Placement: Midline Lochia Amount: Scant Lochia Color: Rubra/Red Episiotomy/Laceration: None Bladder Status: Indwelling Catheter in Place Urinary Elimination: Indwelling Catheter - Exam General: Alert, Oriented HEENT: Pupils Equal Neck: Supple Lungs: Clear to Auscultation, Normal Respiratory Effort Cardiovascular: Regular Rate, Regular Rhythm GI/Abdominal Exam: Normal Bowel Sounds, Soft, Non-Tender, No Organomegaly, No Distention, No Abnormal Bruit, No Mass, Pelvis Stable Extremities: Normal Inspection, Normal Range of Motion, Non-Tender, No Pedal Edema, Normal Capillary Refill Skin: Warm, Dry, Intact Wound/Incisions: Healing Well Neurological: No New Focal Deficit Psy/Mental Status: Alert, Normal Affect, Normal Mood - Problem List Review Problem List Initiated/Reviewed/Updated: Yes - My Orders Last 24 Hours: My Active Orders 01/31/19 09:49 Patient Status [ADT] Routine Ambulate [RC] PER UNIT ROUTINE Communication Order [RC] PER UNIT ROUTINE Communication Order [RC] PER UNIT ROUTINE Communication Order [RC] Per Unit Routine May Shower [RC] ASDIRECTED RT Incentive Spirometry [RC] Q2HWA Acetaminophen/oxyCODONE [Percocet 325-5 MG] 1 tab PO Q4H PRN Acetaminophen/oxyCODONE [Percocet 325-5 MG] 2 tab PO Q4H PRN Bisacodyl [Dulcolax] 10 mg RECTAL ONETIME PRN Ibuprofen [Motrin] 800 mg PO Q8H PRN Lanolin [Lansinoh HPA] See Dose Instructions TOP ASDIRECTED PRN Ondansetron [Zofran] 4 mg IVPUSH Q4H PRN diphenhydrAMINE [Benadryl] 25 mg IVPUSH Q6H PRN Assess Lochia [WOMSER] Per Unit Routine Assess Uterine Involution [WOMSER] Per Unit Routine Breast Pump [WOMSER] Per Unit Routine Peripheral IV Discontinue [OM.PC] Routine Sequential Compression Device [OM.PC] Per Unit Routine 01/31/19 09:50 Antiembolic Devices [RC] PER UNIT ROUTINE 01/31/19 10:00 Lactated Ringers [Ringers, Lactated] 1,000 ml IV ASDIRECTED 01/31/19 21:00 Docusate Sodium [Colace] 100 mg PO BID - Plan Plan:: Labor A: 23 yo EDC 02/06/2019 39 0/7wks, comes due to SROM clear fluid at 1400 today. O+, RI, GBS pos. Declines any antibiotic for the GBS. Disc the risk and benefits of them for the health of her . P: Admit, pain mngt prn, anticipate , Dr Ortega updated
[2019-02-02 05:03] VITALS: PULSE 88
[2019-02-02] MEDS: Docusate Sodium 100 MG Cap PO SCH (08:48)
[2019-02-02 09:28] VITALS: BP 118/79
--- NOTE | 2019-02-02 11:55 | PCM.DCSUM1 ---
Discharge Summary - Hospital Course Free Text/Narrative:: Discharge home, follow up 1 week for incision check and 6 weeks for . Diagnosis: Stroke: No - Discharge Data Discharge Date: 02/02/19 Discharge Disposition: Home, Self-Care 01 Condition: Good - Discharge Diagnosis/Problem(s) (1) Supervision of normal IUP (intrauterine ) in primigravida SNOMED Code(s): 45611496, [id number], [id number], [id number] ICD Code: Z34.00 - ENCNTR FOR SUPRVSN OF NORMAL FIRST , UNSP TRIMESTER Status: Acute Priority: High Current Visit: Yes Qualifiers: Trimester: third trimester Qualified Code(s): Z34.03 - Encounter for supervision of normal first , third trimester (2) SROM (spontaneous rupture of membranes) SNOMED Code(s): 145777660 ICD Code: [id number] - Status: Acute Priority: High Current Visit: Yes (3) delivery delivered SNOMED Code(s): 821017712 ICD Code: O82 - ENCOUNTER FOR DELIVERY WITHOUT INDICATION Status: Acute Priority: High Current Visit: Yes - Patient Summary/Data Operative Procedure(s) Performed: Emergency C/section. - Patient Instructions Diet: Usual Diet as Tolerated Activity: As Tolerated, No Strenuous Activities, Rest and Relax Today Driving: Do Not Drive Showering/Bathing: May Shower Wound/Incision Care: Keep Operative Site/Wound Site Clean and Dry Notify Provider of: Fever, Increased Pain, Swelling and Redness, Drainage, Nausea and/or Vomiting Other/Special Instructions: Discharge home, follow up 1 week for incision check and 6 weeks for . - Discharge Plan *PRESCRIPTION DRUG MONITORING PROGRAM REVIEWED*: Not Applicable *COPY OF PRESCRIPTION DRUG MONITORING REPORT IN PATIENT WILIAN: Not Applicable Prescriptions/Med Rec: Acetaminophen/oxyCODONE [Percocet 325-5 MG] 1 tab PO Q4H PRN #30 tablet PRN Reason: Pain (Moderate 4-6) Ibuprofen [Motrin] 800 mg PO Q8H PRN #90 tablet PRN Reason: mild pain or fever Home Medications: Home Meds Acetaminophen/oxyCODONE [Percocet 325-5 MG] 1 tab PO Q4H PRN #30 tablet [Rx] Ibuprofen [Motrin] 800 mg PO Q8H PRN #90 tablet 02/02/19 [Rx] Oxygen Therapy Mode: Room Air - Discharge Summary/Plan Comment DC Time >30 min.: Yes - General Info Date of Service: 02/02/19 Admission Dx/Problem (Free Text: Patient Status Order with Admit Dx/Problem 01/30/19 16:55 Patient Status [ADT] Routine Admission Diagnosis/Problem Admission Diagnosis/Problem - planned 01/30/19 17:06 23 yo EDC 02/06/2019 39 0/7wks, comes due to SROM clear fluid at 1400 today. O+, RI, GBS pos. Declines any antibiotic for the GBS. Disc the risk and benefits of them for the health of her infant. Functional Status: Reports: Pain Controlled, Tolerating Diet, Ambulating, Urinating - Review of Systems General: Reports: No Symptoms HEENT: Reports: No Symptoms Pulmonary: Reports: No Symptoms Cardiovascular: Reports: No Symptoms Gastrointestinal: Reports: No Symptoms Genitourinary: Reports: No Symptoms Musculoskeletal: Reports: No Symptoms Skin: Reports: No Symptoms Neurological: Reports: No Symptoms Psychiatric: Reports: No Symptoms - Patient Data Vitals - Most Recent: Last Vital Signs Temp 37.2 C 02/02/19 08:30 Pulse 88 02/02/19 04:40 Resp 17 02/02/19 08:30 BP 118/79 02/02/19 08:30 Pulse Ox 96 02/02/19 08:30 Weight - Most Recent: 123.377 kg I&O - Last 24 hours: Intake & Output 02/01/19 02/02/19 02/02/19 22:59 06:59 14:59 Intake Total 1000 Balance 1000 Med Orders - Current: Current Medications Albuterol (Proventil Neb Soln) 2.5 mg NEB ONETIME PRN PRN Reason: Wheezing Atropine Sulfate (Atropine 0.1 Mg/Ml) 0.5 mg IVPUSH ASDIRECTED PRN PRN Reason: Hypo-perfusion Atropine Sulfate (Atropine 0.1 Mg/Ml) 1 mg IVPUSH ASDIRECTED PRN PRN Reason: Hypo-Perfusion Bisacodyl (Dulcolax) 10 mg RECTAL ONETIME PRN PRN Reason: Constipation Butorphanol Tartrate (Stadol) 1 mg IVPUSH Q1H PRN PRN Reason: Pain Carboprost Tromethamine (Hemabate Ds) 250 mcg IM ASDIRECTED PRN PRN Reason: Post Hemorrhage Dextrose/Water (Dextrose 50% In Water) 50 ml IVPUSH ASDIRECTED PRN PRN Reason: Hypoglycemia Diphenhydramine HCl (Benadryl) 25 mg IVPUSH Q6H PRN PRN Reason: Itching or Nausea Docusate Sodium (Colace) 100 mg PO BID [facility] Last Admin: 02/02/19 08:48 Dose: 100 mg Emollient Ointment (Lansinoh Hpa) 0 gm TOP ASDIRECTED PRN PRN Reason: Sore Nipples Epinephrine HCl (Epinephrine 1:10,000) 1 mg IVPUSH ASDIRECTED PRN PRN Reason: ACLS Guidelines Fentanyl (Sublimaze) 50 - 100 mcg IVPUSH Q5M PRN PRN Reason: Pain Last Admin: 01/31/19 10:45 Dose: 50 mcg Lactated Ringer's (Ringers, Lactated) 1,000 mls @ 150 mls/hr IV ASDIRECTED [facility] Last Admin: 01/31/19 03:52 Dose: 150 mls/hr Oxytocin/Sodium Chloride (Oxytocin 30 Unit/500 Ml-Ns) 30 unit in 500 mls @ 500 mls/hr IV TITRATE ELOY Tranexamic Acid 1,000 mg/ (Sodium Chloride) 110 mls @ 660 mls/hr IV ONETIME PRN PRN Reason: Bleeding Oxytocin/Sodium Chloride (Oxytocin 30 Unit/500 Ml-Ns) 30 unit in 500 mls @ 2 mls/hr IV TITRATE ELOY; Protocol Last Titration: 01/31/19 03:33 Dose: 2 munits/min, 2 mls/hr Lactated Ringer's (Ringers, Lactated) 1,000 mls @ 125 mls/hr IV ASDIRECTED [facility] Last Admin: 01/31/19 12:01 Dose: 125 mls/hr Ibuprofen (Motrin) 800 mg PO Q8H PRN PRN Reason: mild pain or fever Last Admin: 02/01/19 18:52 Dose: 800 mg Lidocaine HCl (Xylocaine 1%) 50 ml INJECT ONETIME PRN PRN Reason: Laceration repair Methylergonovine Maleate (Methergine) 0.2 mg IM ASDIRECTED PRN PRN Reason: Post Hemorrhage Misoprostol (Cytotec) 200 mcg PO ONETIME PRN PRN Reason: Post Hemorrhage Nalbuphine HCl (Nubain) 10 mg IVPUSH Q1H PRN PRN Reason: Pain (severe 7-10) Last Admin: 01/30/19 21:51 Dose: 10 mg Ondansetron HCl (Zofran) 4 mg IVPUSH Q4H PRN PRN Reason: Nausea/Vomiting Oxycodone/Acetaminophen (Percocet 325-5 Mg) 1 tab PO Q4H PRN PRN Reason: Pain (moderate 4-6) Oxycodone/Acetaminophen (Percocet 325-5 Mg) 2 tab PO Q4H PRN PRN Reason: Pain (moderate 4-6) Sodium Chloride (Saline Flush) 10 ml FLUSH ASDIRECTED PRN PRN Reason: Keep Vein Open Sodium Chloride (Saline Flush) 2.5 ml FLUSH ASDIRECTED PRN PRN Reason: Keep Vein Open Sodium Chloride (Normal Saline) 10 ml IV ASDIRECTED PRN PRN Reason: IV Use Sterile Water (Sterile Water For Irrigation) 1,000 ml IRR ASDIRECTED PRN PRN Reason: delivery Terbutaline Sulfate (Brethine) 0.25 mg SUBCUT ASDIRECTED PRN PRN Reason: Tacysystole Discontinued Medications Acetaminophen (Tylenol Extra Strength) 1,000 mg PO ONETIME ONE Stop: 01/31/19 03:41 Last Admin: 01/31/19 03:58 Dose: 1,000 mg Acetaminophen (Tylenol Extra Strength) Confirm Administered Dose 1,000 mg .ROUTE .STK-MED ONE Stop: 01/31/19 03:46 Last Admin: 01/31/19 20:53 Dose: Not Given Ampicillin Sodium (Ampicillin) Confirm Administered Dose 2 gm IV .STK-MED ONE Stop: 01/31/19 03:46 Last Admin: 01/31/19 20:53 Dose: Not Given Bupivacaine HCl (Sensorcaine-Mpf 0.5%) Confirm Administered Dose 10 ml .ROUTE .STK-MED ONE Stop: 01/31/19 07:25 Last Admin: 01/31/19 20:54 Dose: Not Given Bupivacaine HCl (Sensorcaine-Mpf 0.5%) Confirm Administered Dose 20 ml .ROUTE .STK-MED ONE Stop: 01/31/19 09:01 Last Admin: 01/31/19 20:54 Dose: Not Given Diphenhydramine HCl (Benadryl) 25 mg IVPUSH Q4H PRN PRN Reason: Itching Stop: 02/01/19 10:01 Fentanyl (Sublimaze) Confirm Administered Dose 100 mcg .ROUTE .STK-MED ONE Stop: 01/30/19 23:41 Last Admin: 01/31/19 20:53 Dose: Not Given Fentanyl (Sublimaze) Confirm Administered Dose 100 mcg .ROUTE .STK-MED ONE Stop: 01/31/19 09:27 Ropivacaine (Naropin 0.2%) Confirm Administered Dose 100 mls @ as directed .ROUTE .STK-MED ONE Stop: 01/30/19 23:42 Last Admin: 01/31/19 20:53 Dose: Not Given Ampicillin Sodium 2 gm/ Sodium (Chloride) 100 mls @ 200 mls/hr IV ONETIME ONE Stop: 01/31/19 04:10 Last Admin: 01/31/19 03:59 Dose: 200 mls/hr Ampicillin Sodium 1 gm/ Sodium (Chloride) 50 mls @ 100 mls/hr IV Q4H [facility] Last Admin: 01/31/19 07:34 Dose: 100 mls/hr Sodium Chloride (Normal Saline) Confirm Administered Dose 100 mls @ as directed .ROUTE .STK-MED ONE Stop: 01/31/19 03:46 Last Admin: 01/31/19 20:53 Dose: Not Given Gentamicin Sulfate 80 mg/ (Sodium Chloride) 52 mls @ 100 mls/hr IV Q8H [facility] Last Admin: 01/31/19 08:07 Dose: 100 mls/hr Fentanyl/Bupivacaine HCl (Eijhevus-Jzaag-Tx 2 Mcg/Ml-0.125%) Confirm Administered Dose 100 mls @ as directed .ROUTE .STK-MED ONE Stop: 01/31/19 07:25 Last Admin: 01/31/19 20:54 Dose: Not Given Ampicillin Sodium/Sulbactam (Sodium 3 gm/ Sodium Chloride) 100 mls @ 200 mls/ hr IV Q6H [facility] Last Admin: 02/01/19 05:57 Dose: 200 mls/hr Lactated Ringer's (Ringers, Lactated) 500 mls @ 500 mls/hr IV .BOLUS ONE Stop: 01/31/19 18:19 Last Admin: 01/31/19 18:20 Dose: 500 mls/hr Ketorolac Tromethamine (Toradol) 30 mg IVPUSH Q6H E[facility] Stop: 02/01/19 10:01 Last Admin: 02/01/19 10:44 Dose: 30 mg Midazolam HCl (Versed 1 Mg/Ml) Confirm Administered Dose 2 mg .ROUTE .STK-MED ONE Stop: 01/31/19 09:38 Morphine Sulfate (Duramorph Pf) Confirm Administered Dose 10 mg .ROUTE .STK-MED ONE Stop: 01/31/19 09:31 Nalbuphine HCl (Nubain) 5 mg IVPUSH Q3H PRN PRN Reason: Pruritis Stop: 02/01/19 10:00 Naloxone HCl (Narcan) 0.1 mg IVPUSH ONETIME PRN PRN Reason: Respiratory Depression Stop: 02/01/19 10:01 Octyl Cyanoacrylate (Dermabond Advance) Confirm Administered Dose 1 applic .ROUTE .STK-MED ONE Stop: 01/31/19 09:48 Last Admin: 01/31/19 20:54 Dose: Not Given Octyl Cyanoacrylate (Dermabond Advance) Confirm Administered Dose 1 applic .ROUTE .STK-MED ONE Stop: 01/31/19 09:48 Last Admin: 01/31/19 20:54 Dose: Not Given Ondansetron HCl (Zofran) Confirm Administered Dose 4 mg .ROUTE .STK-MED ONE Stop: 01/31/19 09:23 Ropivacaine (Naropin 0.2%) Confirm Administered Dose 20 ml .ROUTE .STK-MED ONE Stop: 01/30/19 23:41 Last Admin: 01/31/19 20:53 Dose: Not Given - Exam General: Reports: Alert, Oriented, Cooperative, No Acute Distress Lungs: Reports: Clear to Auscultation, Normal Respiratory Effort. Denies: Decreased Breath Sounds Cardiovascular: Reports: Regular Rate, Regular Rhythm. Denies: No Murmurs GI/Abdominal Exam: Soft, Non-Tender (Female) Exam: Deferred, Vaginal Bleeding Rectal (Female) Exam: Deferred Back Exam: Reports: Normal Inspection, Full Range of Motion Extremities: Normal Inspection, Normal Range of Motion, Non-Tender, No Pedal Edema Skin: Reports: Warm, Dry, Intact Wound/Incisions: Reports: Healing Well, No Drainage. Denies: Erythema Neurological: Reports: No New Focal Deficit, Normal Speech, Normal Tone, Strength Equal Bilateral, Sensation Intact Psy/Mental Status: Reports: Alert, Normal Affect, Normal Mood
== END 2019-02-02 14:40 | disposition home or self-care (01) | DRG 540 ==
LOC: MW.OBCHECK 15:52 → MW.OB 15:52 → MW.OBCHECK 16:54 → MW.OB 16:55 → OBSVTOIN 01-31 09:33 → MW.OB 01-31 11:45
PROVIDERS: ADMIT Obstetrics & Gynecology; ATTEND Obstetrics & Gynecology
PROC: 10D00Z1 Extraction of Products of Conception, Low, Open Approach (ICD-10-PCS; principal; 2019-01-31)
PROC: 3E0R3BZ Introduction of Anesthetic Agent into Spinal Canal, Percutaneous Approach (ICD-10-PCS; 2019-01-31)
PROC: 00HU33Z Insertion of Infusion Device into Spinal Canal, Percutaneous Approach (ICD-10-PCS; 2019-01-31)
DX: O99.824 Streptococcus B carrier state complicating childbirth (principal); O76 Abnormality in fetal heart rate and rhythm complicating labor and delivery; Z3A.39 39 weeks gestation of pregnancy; Z37.0 Single live birth
CPT/HCPCS: 01967; 01968; 36415; 51702; 85014; 85018; 85027; 86850; 86900; 86901; A9270-GY; J0290; J0295; J1580; J1885; J2250; J2270; J2300; J2405; J2590; J3010; J7030; J7050; J7120

== ENCOUNTER 2020-06-04 08:12 | Inpatient (IN) | payer BC ==
[2020-06-04] MEDS: Lactated Ringers 1,000 ML IV SCH ×2 (08:45→10:04)
[2020-06-04] MEDS ORDERED: Misoprostol 200 MCG Tab PO PRN (09:04)
[2020-06-04] MEDS ORDERED: Citric Acid/Sodium Citrate Solution 30 ML Cup PO ONE (09:04)
[2020-06-04] MEDS ORDERED: Sodium Chloride 0.9% 10 ML SDV IV PRN (09:04)
[2020-06-04] MEDS ORDERED: Tranexamic Acid 1,000 MG in Sodium Chloride 0.9% 100 ML IV PRN ×2 (09:04→11:47)
[2020-06-04] MEDS ORDERED: Carboprost Tromethamine 250 MCG/1 ML Amp IM PRN (09:04)
[2020-06-04] MEDS ORDERED: Methylergonovine 0.2 MG/1 ML Amp IM PRN ×2 (09:04→11:47)
[2020-06-04] MEDS ORDERED: Lidocaine 1% 50 ML MDV INJECT PRN (09:04)
[2020-06-04] MEDS ORDERED: Butorphanol 1 MG/ML SDV IVPUSH PRN (09:04)
[2020-06-04] MEDS ORDERED: Ondansetron 4 MG/2 ML SDV IVPUSH PRN ×3 (09:04→12:13)
[2020-06-04] MEDS ORDERED: Water For Irrigation,Sterile 1,000 ML Container IRR PRN (09:04)
[2020-06-04] MEDS ORDERED: Sodium Chloride 0.9% 10 ML Syringe FLUSH PRN (09:04)
[2020-06-04] MEDS ORDERED: Lactated Ringers 1,000 ML IV SCH ×2 (09:15→12:00)
[2020-06-04] MEDS ORDERED: Oxytocin/0.9 % Sodium Chloride 30 UNIT/500 ML BAG IV SCH (09:15)
[2020-06-04] MEDS ORDERED: Oxytocin 10 Units/1 ML SDV ONE (09:31)
[2020-06-04] MEDS ORDERED: Morphine PF 10 MG/10 ML SDV ONE (09:31)
[2020-06-04] MEDS ORDERED: Ondansetron 4 MG/2 ML SDV ONE (09:31)
[2020-06-04] MEDS ORDERED: ePHEDrine 50 MG/ML SDV ONE (09:31)
[2020-06-04] MEDS ORDERED: Propofol 200 MG/20 ML SDV ONE (09:32)
[2020-06-04] MEDS ORDERED: ceFAZolin 1 GM Vial ONE ×2 (09:36→09:39)
[2020-06-04] MEDS ORDERED: Sodium Chloride 0.9% 20 ML ONE (09:36)
[2020-06-04] MEDS ORDERED: Octyl 2-Cyanoacrylate 1 Tube ONE (09:40)
--- NOTE | 2020-06-04 10:04 | PCM.PREANE ---
Preanesthetic Assessment - Anesthesia/Transfusion/Family Hx Anesthesia History: Prior Anesthesia Without Reaction Family History of Anesthesia Reaction: No Transfusion History: No Prior Transfusion(s) Intubation History: Unknown - Review of Systems General: No Symptoms Pulmonary: No Symptoms Cardiovascular: No Symptoms Gastrointestinal: No Symptoms Neurological: No Symptoms Other: Reports: None - Physical Assessment Height: 5 ft 6 in Weight: 122.47 kg ASA Class: 2 Mental Status: Alert & Oriented x3 Airway Class: Mallampati = 2 Dentition: Reports: Normal Dentition Thyro-Mental Finger Breadths: 3 Mouth Opening Finger Breadths: 3 ROM/Head Extension: Full Lungs: Clear to Auscultation, Normal Respiratory Effort Cardiovascular: Regular Rate, Regular Rhythm - Lab Values: Laboratory Last Values WBC 15.81 K/uL (4.0-11.0) H 06/04/20 08:45 RBC 4.19 M/uL (4.30-5.90) L 06/04/20 08:45 Hgb 11.7 g/dL (12.0-16.0) L 06/04/20 08:45 Hct 35.1 % (36.0-46.0) L 06/04/20 08:45 MCV 83.8 fL (80.0-98.0) 06/04/20 08:45 MCH 27.9 pg (27.0-32.0) 06/04/20 08:45 MCHC 33.3 g/dL (31.0-37.0) 06/04/20 08:45 RDW Std Deviation 39.9 fl (28.0-62.0) 06/04/20 08:45 RDW Coeff of Jose 13 % (11.0-15.0) 06/04/20 08:45 Plt Count 312 K/uL (150-400) 06/04/20 08:45 MPV 10.70 fL (7.40-12.00) 06/04/20 08:45 Nucleated RBC % 0.0 /100WBC 06/04/20 08:45 Nucleated RBCs # 0 K/uL 06/04/20 08:45 Urine Color YELLOW 06/04/20 08:15 Urine Appearance CLEAR 06/04/20 08:15 Urine pH 6.0 (5.0-8.0) 06/04/20 08:15 Ur Specific Spiro 1.010 (1.001-1.035) 06/04/20 08:15 Urine Protein NEGATIVE mg/dL (NEGATIVE) 06/04/20 08:15 Urine Glucose (UA) NEGATIVE mg/dL (NEGATIVE) 06/04/20 08:15 Urine Ketones NEGATIVE mg/dL (NEGATIVE) 06/04/20 08:15 Urine Occult Blood NEGATIVE (NEGATIVE) 06/04/20 08:15 Urine Nitrite NEGATIVE (NEGATIVE) 06/04/20 08:15 Urine Bilirubin NEGATIVE (NEGATIVE) 06/04/20 08:15 Urine Urobilinogen 0.2 EU/dL (<2.0) 06/04/20 08:15 Ur Leukocyte Esterase NEGATIVE (NEGATIVE) 06/04/20 08:15 SARS-CoV-2 RNA (MILLIE) NEGATIVE (NEGATIVE) 06/04/20 08:37 Blood Type O POSITIVE 06/04/20 08:45 Antibody Screen NEGATIVE 06/04/20 08:45 - Allergies Allergies/Adverse Reactions: Allergies Allergy/AdvReac Type Severity Reaction Status Date / Time venom-honey bee Allergy Swelling Verified 06/03/20 14:36 [bee venom (honey bee)] - Blood Blood Available: No - Anesthesia Plan Pre-Op Medication Ordered: None - Acknowledgements Anesthesia Type Planned: Spinal Pt an Appropriate Candidate for the Planned Anesthesia: Yes Alternatives and Risks of Anesthesia Discussed w Pt/Guardian: Yes Pt/Guardian Understands and Agrees with Anesthesia Plan: Yes PreAnesthesia Questionnaire HEENT History: Reports: None Cardiovascular History: Reports: None Respiratory History: Reports: None Gastrointestinal History: Reports: None Genitourinary History: Reports: Other (See Below) Other Genitourinary History: right breast tissue removal [employer] History: Reports: None, Musculoskeletal History: Reports: None Neurological History: Reports: None Psychiatric History: Reports: Anxiety Other Psychiatric History: Borderline split personality Endocrine/Metabolic History: Reports: None Hematologic History: Reports: None Immunologic History: Reports: None Oncologic (Cancer) History: Reports: None Dermatologic History: Reports: None - Infectious Disease History Infectious Disease History: Reports: Chicken Pox - Past Surgical History HEENT Surgical History: Reports: Adenoidectomy, Oral Surgery, Tonsillectomy Female Surgical History: Reports: Section Oncologic Surgical History: Reports: Other (See Below) (exc. breast biopsy) - SUBSTANCE USE Tobacco Use Status *Q: Never Tobacco User Second Hand Smoke Exposure: No Recreational Drug Use History: No - HOME MEDS Home Medications: Home Meds Calcium Carbonate [Tums] 1 tab.chew CHEW ASDIRECTED PRN 06/03/20 [History] Pnv No.95/Ferrous Fum/Folic AC [ Vitamin Tablet] 1 tab PO DAILY 06/03/20 [History] - CURRENT (IN HOUSE) MEDS Current Meds: Current Medications Butorphanol Tartrate (Stadol) 1 mg IVPUSH Q1H PRN PRN Reason: Pain Carboprost Tromethamine (Hemabate Ds) 250 mcg IM ASDIRECTED PRN PRN Reason: Post Hemorrhage Lactated Ringer's (Ringers, Lactated) 1,000 mls @ 150 mls/hr IV ASDIRECTED ELOY Oxytocin/Sodium Chloride (Oxytocin 30 Unit/500 Ml-Ns) 30 unit in 500 mls @ 999 mls/hr IV TITRATE ELOY Tranexamic Acid 1,000 mg/ (Sodium Chloride) 110 mls @ 660 mls/hr IV ONETIME PRN PRN Reason: Bleeding Lactated Ringer's (Ringers, Lactated) 1,000 mls @ 500 mls/hr IV BOLUS [facility] Last Infusion: 06/04/20 09:30 Dose: 999 mls/hr Documented by: Lidocaine HCl (Xylocaine 1%) 50 ml INJECT ONETIME PRN PRN Reason: Laceration repair Methylergonovine Maleate (Methergine) 0.2 mg IM ASDIRECTED PRN PRN Reason: Post Hemorrhage Misoprostol (Cytotec) 200 mcg PO ONETIME PRN PRN Reason: Post Hemorrhage Ondansetron HCl (Zofran) 4 mg IVPUSH Q4H PRN PRN Reason: Nausea/Vomiting Sodium Chloride (Saline Flush) 10 ml FLUSH ASDIRECTED PRN PRN Reason: Keep Vein Open Sodium Chloride (Normal Saline) 10 ml IV ASDIRECTED PRN PRN Reason: IV Use Sterile Water (Sterile Water For Irrigation) 1,000 ml IRR ASDIRECTED PRN PRN Reason: delivery Discontinued Medications Cefazolin Sodium (Ancef) Confirm Administered Dose 2 gm .ROUTE .STK-MED ONE Stop: 06/04/20 09:37 Cefazolin Sodium (Ancef) Confirm Administered Dose 1 gm .ROUTE .STK-MED ONE Stop: 06/04/20 09:40 Citric Acid/Sodium Citrate (Bicitra Solution) 30 ml PO ONETIME ONE Stop: 06/04/20 09:05 Ephedrine Sulfate (Ephedrine Sulfate) Confirm Administered Dose 100 mg .ROUTE .STK-MED ONE Stop: 06/04/20 09:32 Cefazolin Sodium/Dextrose 3 gm (/ Premix) 150 mls @ 300 mls/hr IV ONETIME ONE Stop: 06/04/20 09:33 Sodium Chloride (Normal Saline) Confirm Administered Dose 20 mls @ as directed .ROUTE .STK-MED ONE Stop: 06/04/20 09:37 Acetaminophen (Ofirmev) Confirm Administered Dose 100 mls @ as directed .ROUTE .STK-MED ONE Stop: 06/04/20 09:56 Morphine Sulfate (Duramorph Pf) Confirm Administered Dose 10 mg .ROUTE .STK-MED ONE Stop: 06/04/20 09:32 Octyl Cyanoacrylate (Dermabond Advance) Confirm Administered Dose 1 applic .ROUTE .STK-MED ONE Stop: 06/04/20 09:41 Ondansetron HCl (Zofran) Confirm Administered Dose 4 mg .ROUTE .STK-MED ONE Stop: 06/04/20 09:32 Oxytocin (Pitocin) Confirm Administered Dose 30 unit .ROUTE .STK-MED ONE Stop: 06/04/20 09:32 Propofol (Diprivan 20 Ml) Confirm Administered Dose 200 mg .ROUTE .STK-MED ONE Stop: 06/04/20 09:33
[2020-06-04] MEDS ORDERED: diphenhydrAMINE 50 MG/ML SDV IVPUSH PRN ×2 (11:47→12:13)
[2020-06-04] MEDS ORDERED: Oxytocin 10 Units/1 ML SDV IM PRN (11:47)
[2020-06-04] MEDS ORDERED: Lanolin 100% Cream 7 GM Tube TOP PRN (11:47)
[2020-06-04] MEDS ORDERED: Ibuprofen 800 MG Tab PO PRN (11:47)
[2020-06-04] MEDS ORDERED: Misoprostol 200 MCG Tab RECTAL PRN (11:47)
[2020-06-04] MEDS ORDERED: Bisacodyl 10 MG Supp RECTAL PRN (11:47)
[2020-06-04] MEDS ORDERED: Acetaminophen/oxyCODONE 325-5 MG Tab PO PRN ×3 (11:47→12:13)
[2020-06-04] MEDS ORDERED: Naloxone 0.4 MG/ML Syringe IVPUSH PRN (12:13)
[2020-06-04] MEDS ORDERED: Nalbuphine 10 MG/1 ML Vial IVPUSH PRN (12:13)
[2020-06-04] MEDS ORDERED: fentaNYL 100 MCG/2 ML SDV IVPUSH PRN (12:13)
[2020-06-04] MEDS: Ketorolac 30 MG/ML SDV IVPUSH SCH ×3 (12:16→23:51)
--- NOTE | 2020-06-04 12:38 | PCM.POSTAN ---
POST ANESTHESIA ASSESSMENT - MENTAL STATUS Mental Status: Alert, Oriented - VITAL SIGNS Vital Signs: Last Vital Signs Temp Pulse 83 06/04/20 12:32 Resp 14 06/04/20 12:32 BP 103/59 L 06/04/20 12:32 Pulse Ox 96 06/04/20 12:32 - RESPIRATORY Respiratory Status: Respiratory Rate WNL - CARDIOVASCULAR CV Status: Pulse Rate WNL - GASTROINTESTINAL GI Status: No Symptoms - POST OP HYDRATION Hydration Status: Adequate & Stable
--- NOTE | 2020-06-04 16:56 | PCM.LDHP ---
L&D History of Present Illness - General Date of Service: 06/04/20 Admit Problem/Dx: Patient Status Order with Admit Dx/Problem 06/04/20 08:18 Patient Status [ADT] Routine 06/04/20 09:04 Patient Status [ADT] Routine 06/04/20 11:47 Patient Status [ADT] Routine Admission Diagnosis/Problem Admission Diagnosis/Problem Source of Information: Patient History Limitations: Reports: No Limitations - History of Present Illness Introduction:: 24yo @ 38w5d [place] here with contractions for a few hours. Denies LOF or bleeding. Good movement. c/b h/o 16months ago, and obesity. O+. Rh negative. RI. HbsAg NR Upon arrival to L&D patient was checked by the nurse and found to be dilated to 5cm. Pain Score: 2 - Related Data Allergies/Adverse Reactions: Allergies Allergy/AdvReac Type Severity Reaction Status Date / Time venom-honey bee Allergy Swelling Verified 06/03/20 14:36 [bee venom (honey bee)] Home Medications: Home Meds Calcium Carbonate [Tums] 1 tab.chew CHEW ASDIRECTED PRN 06/03/20 [History] Pnv No.95/Ferrous Fum/Folic AC [ Vitamin Tablet] 1 tab PO DAILY 06/03/20 [History] Past Medical History HEENT History: Reports: None Cardiovascular History: Reports: None Respiratory History: Reports: None Gastrointestinal History: Reports: None Genitourinary History: Reports: Other (See Below) Other Genitourinary History: right breast tissue removal [employer] History: Reports: None, Musculoskeletal History: Reports: None Neurological History: Reports: None Psychiatric History: Reports: Anxiety Other Psychiatric History: Borderline split personality Endocrine/Metabolic History: Reports: None Hematologic History: Reports: None Immunologic History: Reports: None Oncologic (Cancer) History: Reports: None Dermatologic History: Reports: None - Infectious Disease History Infectious Disease History: Reports: Chicken Pox - Past Surgical History HEENT Surgical History: Reports: Adenoidectomy, Oral Surgery, Tonsillectomy Female Surgical History: Reports: Section Oncologic Surgical History: Reports: Other (See Below) (exc. breast biopsy) Social & Family History - Family History Family Medical History: No Pertinent Family History - Tobacco Use Tobacco Use Status *Q: Never Tobacco User Second Hand Smoke Exposure: No - Caffeine Use Caffeine Use: Reports: Coffee - Recreational Drug Use Recreational Drug Use: No H&P Review of Systems - Review of Systems: Review Of Systems: See Below General: Reports: No Symptoms HEENT: Reports: No Symptoms Pulmonary: Reports: No Symptoms Cardiovascular: Reports: No Symptoms Gastrointestinal: Reports: No Symptoms Genitourinary: Reports: No Symptoms Musculoskeletal: Reports: No Symptoms Skin: Reports: No Symptoms Psychiatric: Reports: No Symptoms Neurological: Reports: No Symptoms L&D Exam - Exam Exam: See Below - Vital Signs Vital Signs: Last Vital Signs Temp Pulse 84 06/04/20 13:30 Resp 18 06/04/20 13:30 BP 109/52 L 06/04/20 13:30 Pulse Ox 100 06/04/20 13:30 Weight: 122.47 kg - OB Specific Contraction Intensity: Moderate Movement: Active Heart Tones: Present Heart Rate (FHR) Variability: Moderate (6-25 bmp) Presentation: Vertex - Townsend Score Townsend Score Cervix Position: Midposition Townsend Score Consistency: Medium Townsend Score Effacement: 51-70% Townsend Score Dilation: > 5 cm Townsend Score 's Station: -1 ,0 Townsend Score Total: 9 - Exam General: Alert, Oriented Neck: Supple Lungs: Normal Respiratory Effort Cardiovascular: Regular Rate GI/Abdominal Exam: Soft Extremities: Normal Inspection Psychiatric: Alert, Normal Affect, Normal Mood - Patient Data Lab Results Last 24 hrs: Laboratory Results - last 24 hr 06/04/20 06/04/20 06/04/20 Range/Units 08:15 08:37 08:45 WBC 15.81 H (4.0-11.0) K/uL RBC 4.19 L (4.30-5.90) M/uL Hgb 11.7 L (12.0-16.0) g/dL Hct 35.1 L (36.0-46.0) % MCV 83.8 (80.0-98.0) fL MCH 27.9 (27.0-32.0) pg MCHC 33.3 (31.0-37.0) g/dL RDW Std Deviation 39.9 (28.0-62.0) fl RDW Coeff of Jose 13 (11.0-15.0) % Plt Count 312 (150-400) K/uL MPV 10.70 (7.40-12.00) fL Nucleated RBC % 0.0 /100WBC Nucleated RBCs # 0 K/uL Urine Color YELLOW Urine Appearance CLEAR Urine pH 6.0 (5.0-8.0) Ur Specific Wideman 1.010 (1.001-1.035) Urine Protein NEGATIVE (NEGATIVE) mg/dL Urine Glucose (UA) NEGATIVE (NEGATIVE) mg/dL Urine Ketones NEGATIVE (NEGATIVE) mg/dL Urine Occult Blood NEGATIVE (NEGATIVE) Urine Nitrite NEGATIVE (NEGATIVE) Urine Bilirubin NEGATIVE (NEGATIVE) Urine Urobilinogen 0.2 (<2.0) EU/dL Ur Leukocyte Esterase NEGATIVE (NEGATIVE) SARS-CoV-2 RNA (MILLIE) NEGATIVE (NEGATIVE) Blood Type Antibody Screen 06/04/20 Range/Units 08:45 WBC (4.0-11.0) K/uL RBC (4.30-5.90) M/uL Hgb (12.0-16.0) g/dL Hct (36.0-46.0) % MCV (80.0-98.0) fL MCH (27.0-32.0) pg MCHC (31.0-37.0) g/dL RDW Std Deviation (28.0-62.0) fl RDW Coeff of Jose (11.0-15.0) % Plt Count (150-400) K/uL MPV (7.40-12.00) fL Nucleated RBC % /100WBC Nucleated RBCs # K/uL Urine Color Urine Appearance Urine pH (5.0-8.0) Ur Specific Wideman (1.001-1.035) Urine Protein (NEGATIVE) mg/dL Urine Glucose (UA) (NEGATIVE) mg/dL Urine Ketones (NEGATIVE) mg/dL Urine Occult Blood (NEGATIVE) Urine Nitrite (NEGATIVE) Urine Bilirubin (NEGATIVE) Urine Urobilinogen (<2.0) EU/dL Ur Leukocyte Esterase (NEGATIVE) SARS-CoV-2 RNA (MILLIE) (NEGATIVE) Blood Type O POSITIVE Antibody Screen NEGATIVE Result Diagrams: 06/04/20 08:45 - Problem List (1) History of section SNOMED Code(s): 411043237 ICD Code: Z98.891 - HISTORY OF UTERINE SCAR FROM PREVIOUS SURGERY Status: Acute Priority: Medium Current Visit: Yes (2) Term SNOMED Code(s): 33258892 ICD Code: Z34.90 - ENCNTR FOR SUPRVSN OF NORMAL , UNSP, UNSP TRIMESTER Status: Acute Priority: Medium Current Visit: Yes (3) Active labor at term SNOMED Code(s): 42533215 ICD Code: UUG7228 - Status: Acute Priority: High Current Visit: Yes Problem List Initiated/Reviewed/Updated: Yes Orders Last 24hrs: Active Orders 24 hr Category Date Time Status Patient Status [ADT] Routine ADT 06/04/20 08:18 Active Patient Status [ADT] Routine ADT 06/04/20 09:04 Active Patient Status [ADT] Routine ADT 06/04/20 11:47 Active Ambulate [RC] PER UNIT ROUTINE Care 06/04/20 11:47 Active Antiembolic Devices [RC] PER UNIT ROUTINE Care 06/04/20 11:48 Active Bradycardia-Neuroaxis [employer] [RC] ROUTINE Care 06/04/20 12:13 Active Communication Order [RC] PER UNIT ROUTINE Care 06/04/20 11:47 Active Communication Order [RC] PER UNIT ROUTINE Care 06/04/20 11:47 Active Communication Order [RC] Per Unit Routine Care 06/04/20 11:47 Active Non Stress Test [RC] PER UNIT ROUTINE Care 06/04/20 08:18 Active Hypertension-Neuroaxis [employer] [RC] ROUTINE Care 06/04/20 12:13 Active Hypotension-Neuroaxis [employer] [RC] ROUTINE Care 06/04/20 12:13 Active May Shower [RC] ASDIRECTED Care 06/04/20 09:04 Active Notify Provider Intake and Out [RC] ASDIRECTED Care 06/04/20 11:47 Active Notify Provider Vital Signs [RC] ASDIRECTED Care 06/04/20 11:47 Active Notify Provider Vital Signs [RC] PRN Care 06/04/20 09:08 Active Notify Provider [RC] PRN Care 06/04/20 09:04 Active Oxygen Therapy [RC] PER UNIT ROUTINE Care 06/04/20 12:13 Active Procedure Site Prep Instruct [RC] ASDIRECTED Care 06/04/20 09:04 Active RT Incentive Spirometry [RC] Q2HWA Care 06/04/20 11:47 Active Up ad Radha [RC] ASDIRECTED Care 06/04/20 08:18 Active Verify Patient Consent Obtain [RC] ASDIRECTED Care 06/04/20 09:04 Active Vital Signs [RC] PER UNIT ROUTINE Care 06/04/20 09:04 Active Vital Signs [RC] PER UNIT ROUTINE Care 06/04/20 11:47 Active Vital Signs [RC] Q1H Care 06/04/20 12:13 Active HEMOGLOBIN/HEMATOCRIT,HH [HEME] Timed Lab 06/05/20 05:11 Ordered RPR (SYPHILIS SERO) W/ RFLX [REF] Routine Lab 06/04/20 08:45 Received Acetaminophen/oxyCODONE [Percocet 325-5 MG] Med 06/04/20 11:47 Active 1 tab PO Q4H PRN Acetaminophen/oxyCODONE [Percocet 325-5 MG] Med 06/04/20 11:47 Active 2 tab PO Q4H PRN Acetaminophen/oxyCODONE [Percocet 325-5 MG] Med 06/04/20 12:13 Active 2 tab PO Q6H PRN Butorphanol [Stadol] Med 06/04/20 09:04 Active 1 mg IVPUSH Q1H PRN Carboprost Tromethamine [Hemabate DS] Med 06/04/20 09:04 Active 250 mcg IM ASDIRECTED PRN Docusate Sodium [Colace] Med 06/04/20 21:00 Active 100 mg PO BID Ibuprofen [Motrin] Med 06/04/20 11:47 Active 800 mg PO Q8H PRN Ketorolac [Toradol] Med 06/04/20 12:00 Active 30 mg IVPUSH Q6H Lactated Ringers [Ringers, Lactated] 1,000 ml Med 06/04/20 09:15 Active IV ASDIRECTED Lactated Ringers [Ringers, Lactated] 1,000 ml Med 06/04/20 12:00 Active IV ASDIRECTED Lactated Ringers [Ringers, Lactated] 1,000 ml Med 06/04/20 09:15 Active IV BOLUS Lanolin [Lansinoh HPA] Med 06/04/20 11:47 Active See Dose Instructions TOP ASDIRECTED PRN Lidocaine 1% [Xylocaine 1%] Med 06/04/20 09:04 Active 50 ml INJECT ONETIME PRN Methylergonovine [Methergine] Med 06/04/20 09:04 Active 0.2 mg IM ASDIRECTED PRN Methylergonovine [Methergine] Med 06/04/20 11:47 Active 0.2 mg IM ONETIME PRN Nalbuphine [Nubain] Med 06/04/20 12:13 Active 5 mg IVPUSH ASDIRECTED PRN Naloxone [Narcan] Med 06/04/20 12:13 Active 0.1 mg IVPUSH ONETIME PRN Ondansetron [Zofran] Med 06/04/20 09:04 Active 4 mg IVPUSH Q4H PRN Ondansetron [Zofran] Med 06/04/20 11:47 Active 4 mg IVPUSH Q4H PRN Ondansetron [Zofran] Med 06/04/20 12:13 Active 4 mg IVPUSH Q6H PRN Oxytocin [Pitocin] Med 06/04/20 11:47 Active 10 unit IM ASDIRECTED PRN Oxytocin/0.9 % Sodium Chloride [Oxytocin 30 Unit/500 ML Med 06/04/20 09:15 Ac tive -NS] 30 unit in 500 ml IV TITRATE Sodium Chloride 0.9% [Normal Saline] Med 06/04/20 09:04 Active 10 ml IV ASDIRECTED PRN Sodium Chloride 0.9% [Saline Flush] Med 06/04/20 09:04 Active 10 ml FLUSH ASDIRECTED PRN Tranexamic Acid [Cyklokapron] 1,000 mg Med 06/04/20 09:04 Active Sodium Chloride 0.9% [Normal Saline] 100 ml IV ONETIME Tranexamic Acid [Cyklokapron] 1,000 mg Med 06/04/20 11:47 Active Sodium Chloride 0.9% [Normal Saline] 100 ml IV ONETIME Water For Irrigation,Sterile [Sterile Water for Med 06/04/20 09:04 Active Irrigation] 1,000 ml IRR ASDIRECTED PRN bisacodyL [Dulcolax] Med 06/04/20 11:47 Active 10 mg RECTAL ONETIME PRN diphenhydrAMINE [Benadryl] Med 06/04/20 12:13 Active 25 mg IVPUSH Q4H PRN diphenhydrAMINE [Benadryl] Med 06/04/20 11:47 Active 25 mg IVPUSH Q6H PRN fentaNYL [Sublimaze] Med 06/04/20 12:13 Active 50 mcg IVPUSH Q1H PRN miSOPROStoL [Cytotec] Med 06/04/20 11:47 Active 1,000 mcg RECTAL ONETIME PRN miSOPROStoL [Cytotec] Med 06/04/20 09:04 Active 200 mcg PO ONETIME PRN Assess Lochia [WOMSER] Per Unit Routine Ot 06/04/20 11:47 Ordered Assess Uterine Involution [WOMSER] Per Unit Routine Oth 06/04/20 11:47 Ordered Breast Pump [WOMSER] Per Unit Routine Oth 06/04/20 11:47 Ordered Scalp Electrode [WOMSER] Per Unit Routine Ot 06/04/20 09:04 Ordered Peripheral IV Discontinue [OM.PC] Routine Ot 06/04/20 11:47 Ordered Peripheral IV Insertion Adult [OM.PC] Routine Ot 06/04/20 09:04 Ordered Peripheral IV Insertion Adult [OM.PC] Routine Ot 06/04/20 09:04 Ordered Schedule Procedure [COMM] Per Unit Routine Oth 06/04/20 09:04 Ordered Sequential Compression Device [OM.PC] Per Unit Routine Oth 06/04/20 11:47 Ordered Resuscitation Status Routine Resus Stat 06/04/20 08:18 Ordered Medication Orders Bisacodyl (Dulcolax) 10 mg RECTAL ONETIME PRN PRN Reason: Constipation Butorphanol Tartrate (Stadol) 1 mg IVPUSH Q1H PRN PRN Reason: Pain Carboprost Tromethamine (Hemabate Ds) 250 mcg IM ASDIRECTED PRN PRN Reason: Post Hemorrhage Diphenhydramine HCl (Benadryl) 25 mg IVPUSH Q6H PRN PRN Reason: Itching or Nausea Diphenhydramine HCl (Benadryl) 25 mg IVPUSH Q4H PRN PRN Reason: Itching Stop: 06/05/20 12:13 Docusate Sodium (Colace) 100 mg PO BID ELOY Emollient Ointment (Lansinoh Hpa) 0 gm TOP ASDIRECTED PRN PRN Reason: Sore Nipples Fentanyl (Sublimaze) 50 mcg IVPUSH Q1H PRN PRN Reason: Pain (severe 7-10) Lactated Ringer's (Ringers, Lactated) 1,000 mls @ 150 mls/hr IV ASDIRECTED [facility] Oxytocin/Sodium Chloride (Oxytocin 30 Unit/500 Ml-Ns) 30 unit in 500 mls @ 999 mls/hr IV TITRATE ELOY Tranexamic Acid 1,000 mg/ (Sodium Chloride) 110 mls @ 660 mls/hr IV ONETIME PRN PRN Reason: Bleeding Lactated Ringer's (Ringers, Lactated) 1,000 mls @ 500 mls/hr IV BOLUS [facility] Last Infusion: 06/04/20 10:04 Dose: 999 mls/hr Documented by: Admin: 06/04/20 10:04 Dose: 999 mls/hr Documented by: Infusion: 06/04/20 10:04 Dose: 999 mls/hr Documented by: Infusion: 06/04/20 09:30 Dose: 999 mls/hr Documented by: Admin: 06/04/20 08:45 Dose: 500 mls/hr Documented by: BASILIA Lactated Ringer's (Ringers, Lactated) 1,000 mls @ 125 mls/hr IV ASDIRECTED [facility] Tranexamic Acid 1,000 mg/ (Sodium Chloride) 110 mls @ 660 mls/hr IV ONETIME PRN PRN Reason: Bleeding Ibuprofen (Motrin) 800 mg PO Q8H PRN PRN Reason: mild pain or fever Ketorolac Tromethamine (Toradol) 30 mg IVPUSH Q6H [facility] Stop: 06/05/20 12:01 Last Admin: 06/04/20 12:16 Dose: 30 mg Documented by: [id number] Lidocaine HCl (Xylocaine 1%) 50 ml INJECT ONETIME PRN PRN Reason: Laceration repair Methylergonovine Maleate (Methergine) 0.2 mg IM ASDIRECTED PRN PRN Reason: Post Hemorrhage Methylergonovine Maleate (Methergine) 0.2 mg IM ONETIME PRN PRN Reason: Excessive Vaginal Bleeding Misoprostol (Cytotec) 200 mcg PO ONETIME PRN PRN Reason: Post Hemorrhage Misoprostol (Cytotec) 1,000 mcg RECTAL ONETIME PRN PRN Reason: excessive bleeding Nalbuphine HCl (Nubain) 5 mg IVPUSH ASDIRECTED PRN PRN Reason: Itching Last Admin: 06/04/20 15:30 Dose: 5 mg Documented by: [email or web address] Naloxone HCl (Narcan) 0.1 mg IVPUSH ONETIME PRN PRN Reason: Respiratory Depression Stop: 06/05/20 12:13 Ondansetron HCl (Zofran) 4 mg IVPUSH Q4H PRN PRN Reason: Nausea/Vomiting Ondansetron HCl (Zofran) 4 mg IVPUSH Q4H PRN PRN Reason: Nausea/Vomiting Ondansetron HCl (Zofran) 4 mg IVPUSH Q6H PRN PRN Reason: Nausea Oxycodone/Acetaminophen (Percocet 325-5 Mg) 1 tab PO Q4H PRN PRN Reason: Pain (moderate 4-6) Oxycodone/Acetaminophen (Percocet 325-5 Mg) 2 tab PO Q4H PRN PRN Reason: Pain (moderate 4-6) Oxycodone/Acetaminophen (Percocet 325-5 Mg) 2 tab PO Q6H PRN PRN Reason: Pain (moderate 4-6) Oxytocin (Pitocin) 10 unit IM ASDIRECTED PRN PRN Reason: Excessive Vaginal Bleeding Sodium Chloride (Saline Flush) 10 ml FLUSH ASDIRECTED PRN PRN Reason: Keep Vein Open Sodium Chloride (Normal Saline) 10 ml IV ASDIRECTED PRN PRN Reason: IV Use Sterile Water (Sterile Water For Irrigation) 1,000 ml IRR ASDIRECTED PRN PRN Reason: delivery Assessment/Plan Comment:: 24yo @ 38w5d [place] admitted in labor, scheduled for in 1 week. c/b h/o 16months ago, and obesity. O+. Rh negative. RI. HbsAg NR Will proceed with C section today. Patient agreeable. Orders placed, consents signed
--- NOTE | 2020-06-04 17:05 | PCM.DEL ---
L & D Note - General Info Date of Service: 06/04/20 Mother's Due Date: 06/13/20 - Delivery Note Labor: Spontaneous Delivery Outcome: Livebirth Infant Delivery Method: Repeat Presentation: Vertex Nuchal Cord: Present, Reduced Anesthesia Type: Spinal Estimated Blood Loss: 450 Resuscitation Needed: No Pavillion: Stimulated, Warmed Score 1 min: 8 Score 5 min: 9 Delivery Comments (Free Text/Narrative):: 24yo @ 38w5d GA with prior 16months ago, admitted in labor. S/P repeat uncomplicated low transverse . Delivery details: Male baby Apgars: 8/9 Weight: [id number] EBL: 450mLs Placenta: spontaneous delivery Maternal or complications: None - General Info Date of Service: 06/04/20 Subjective Update: 24yo @ 38w5d GA admitted in labor. c/b h/o 16months ago, and obesity. S/P RLTCS Patient and baby doing well. Recovering in L&D Functional Status: Reports: Pain Controlled - Review of Systems General: Reports: No Symptoms HEENT: Reports: No Symptoms Pulmonary: Reports: No Symptoms Cardiovascular: Reports: No Symptoms Psychiatric: Reports: No Symptoms - Patient Data Vitals - Most Recent: Last Vital Signs Temp Pulse 84 06/04/20 13:30 Resp 18 06/04/20 13:30 BP 109/52 L 06/04/20 13:30 Pulse Ox 100 06/04/20 13:30 Weight - Most Recent: 122.47 kg I&O - Last 24 Hours: Intake & Output 06/04/20 06/04/20 06/04/20 06:59 14:59 22:59 Intake Total 2800 Output Total 225 Balance 2575 Lab Results Last 24 Hours: Laboratory Results - last 24 hr 06/04/20 06/04/20 06/04/20 Range/Units 08:15 08:37 08:45 WBC 15.81 H (4.0-11.0) K/uL RBC 4.19 L (4.30-5.90) M/uL Hgb 11.7 L (12.0-16.0) g/dL Hct 35.1 L (36.0-46.0) % MCV 83.8 (80.0-98.0) fL MCH 27.9 (27.0-32.0) pg MCHC 33.3 (31.0-37.0) g/dL RDW Std Deviation 39.9 (28.0-62.0) fl RDW Coeff of Jose 13 (11.0-15.0) % Plt Count 312 (150-400) K/uL MPV 10.70 (7.40-12.00) fL Nucleated RBC % 0.0 /100WBC Nucleated RBCs # 0 K/uL Urine Color YELLOW Urine Appearance CLEAR Urine pH 6.0 (5.0-8.0) Ur Specific [place] 1.010 (1.001-1.035) Urine Protein NEGATIVE (NEGATIVE) mg/dL Urine Glucose (UA) NEGATIVE (NEGATIVE) mg/dL Urine Ketones NEGATIVE (NEGATIVE) mg/dL Urine Occult Blood NEGATIVE (NEGATIVE) Urine Nitrite NEGATIVE (NEGATIVE) Urine Bilirubin NEGATIVE (NEGATIVE) Urine Urobilinogen 0.2 (<2.0) EU/dL Ur Leukocyte Esterase NEGATIVE (NEGATIVE) SARS-CoV-2 RNA (MILLIE) NEGATIVE (NEGATIVE) Blood Type Antibody Screen 06/04/20 Range/Units 08:45 WBC (4.0-11.0) K/uL RBC (4.30-5.90) M/uL Hgb (12.0-16.0) g/dL Hct (36.0-46.0) % MCV (80.0-98.0) fL MCH (27.0-32.0) pg MCHC (31.0-37.0) g/dL RDW Std Deviation (28.0-62.0) fl RDW Coeff of Jose (11.0-15.0) % Plt Count (150-400) K/uL MPV (7.40-12.00) fL Nucleated RBC % /100WBC Nucleated RBCs # K/uL Urine Color Urine Appearance Urine pH (5.0-8.0) Ur Specific [place] (1.001-1.035) Urine Protein (NEGATIVE) mg/dL Urine Glucose (UA) (NEGATIVE) mg/dL Urine Ketones (NEGATIVE) mg/dL Urine Occult Blood (NEGATIVE) Urine Nitrite (NEGATIVE) Urine Bilirubin (NEGATIVE) Urine Urobilinogen (<2.0) EU/dL Ur Leukocyte Esterase (NEGATIVE) SARS-CoV-2 RNA (MILLIE) (NEGATIVE) Blood Type O POSITIVE Antibody Screen NEGATIVE Med Orders - Current: Current Medications Bisacodyl (Dulcolax) 10 mg RECTAL ONETIME PRN PRN Reason: Constipation Butorphanol Tartrate (Stadol) 1 mg IVPUSH Q1H PRN PRN Reason: Pain Carboprost Tromethamine (Hemabate Ds) 250 mcg IM ASDIRECTED PRN PRN Reason: Post Hemorrhage Diphenhydramine HCl (Benadryl) 25 mg IVPUSH Q6H PRN PRN Reason: Itching or Nausea Diphenhydramine HCl (Benadryl) 25 mg IVPUSH Q4H PRN PRN Reason: Itching Stop: 06/05/20 12:13 Docusate Sodium (Colace) 100 mg PO BID [facility] Emollient Ointment (Lansinoh Hpa) 0 gm TOP ASDIRECTED PRN PRN Reason: Sore Nipples Fentanyl (Sublimaze) 50 mcg IVPUSH Q1H PRN PRN Reason: Pain (severe 7-10) Lactated Ringer's (Ringers, Lactated) 1,000 mls @ 150 mls/hr IV ASDIRECTED ELOY Oxytocin/Sodium Chloride (Oxytocin 30 Unit/500 Ml-Ns) 30 unit in 500 mls @ 999 mls/hr IV TITRATE ELOY Tranexamic Acid 1,000 mg/ (Sodium Chloride) 110 mls @ 660 mls/hr IV ONETIME PRN PRN Reason: Bleeding Lactated Ringer's (Ringers, Lactated) 1,000 mls @ 500 mls/hr IV BOLUS [facility] Last Infusion: 06/04/20 10:04 Dose: 999 mls/hr Documented by: Lactated Ringer's (Ringers, Lactated) 1,000 mls @ 125 mls/hr IV ASDIRECTED ELOY Tranexamic Acid 1,000 mg/ (Sodium Chloride) 110 mls @ 660 mls/hr IV ONETIME PRN PRN Reason: Bleeding Ibuprofen (Motrin) 800 mg PO Q8H PRN PRN Reason: mild pain or fever Ketorolac Tromethamine (Toradol) 30 mg IVPUSH Q6H ELOY Stop: 06/05/20 12:01 Last Admin: 06/04/20 12:16 Dose: 30 mg Documented by: Lidocaine HCl (Xylocaine 1%) 50 ml INJECT ONETIME PRN PRN Reason: Laceration repair Methylergonovine Maleate (Methergine) 0.2 mg IM ASDIRECTED PRN PRN Reason: Post Hemorrhage Methylergonovine Maleate (Methergine) 0.2 mg IM ONETIME PRN PRN Reason: Excessive Vaginal Bleeding Misoprostol (Cytotec) 200 mcg PO ONETIME PRN PRN Reason: Post Hemorrhage Misoprostol (Cytotec) 1,000 mcg RECTAL ONETIME PRN PRN Reason: excessive bleeding Nalbuphine HCl (Nubain) 5 mg IVPUSH ASDIRECTED PRN PRN Reason: Itching Last Admin: 06/04/20 15:30 Dose: 5 mg Documented by: Naloxone HCl (Narcan) 0.1 mg IVPUSH ONETIME PRN PRN Reason: Respiratory Depression Stop: 06/05/20 12:13 Ondansetron HCl (Zofran) 4 mg IVPUSH Q4H PRN PRN Reason: Nausea/Vomiting Ondansetron HCl (Zofran) 4 mg IVPUSH Q4H PRN PRN Reason: Nausea/Vomiting Ondansetron HCl (Zofran) 4 mg IVPUSH Q6H PRN PRN Reason: Nausea Oxycodone/Acetaminophen (Percocet 325-5 Mg) 1 tab PO Q4H PRN PRN Reason: Pain (moderate 4-6) Oxycodone/Acetaminophen (Percocet 325-5 Mg) 2 tab PO Q4H PRN PRN Reason: Pain (moderate 4-6) Oxycodone/Acetaminophen (Percocet 325-5 Mg) 2 tab PO Q6H PRN PRN Reason: Pain (moderate 4-6) Oxytocin (Pitocin) 10 unit IM ASDIRECTED PRN PRN Reason: Excessive Vaginal Bleeding Sodium Chloride (Saline Flush) 10 ml FLUSH ASDIRECTED PRN PRN Reason: Keep Vein Open Sodium Chloride (Normal Saline) 10 ml IV ASDIRECTED PRN PRN Reason: IV Use Sterile Water (Sterile Water For Irrigation) 1,000 ml IRR ASDIRECTED PRN PRN Reason: delivery Discontinued Medications Cefazolin Sodium (Ancef) Confirm Administered Dose 2 gm .ROUTE .STK-MED ONE Stop: 06/04/20 09:37 Cefazolin Sodium (Ancef) Confirm Administered Dose 1 gm .ROUTE .STK-MED ONE Stop: 06/04/20 09:40 Citric Acid/Sodium Citrate (Bicitra Solution) 30 ml PO ONETIME ONE Stop: 06/04/20 09:05 Ephedrine Sulfate (Ephedrine Sulfate) Confirm Administered Dose 100 mg .ROUTE .STK-MED ONE Stop: 06/04/20 09:32 Cefazolin Sodium/Dextrose 3 gm (/ Premix) 150 mls @ 300 mls/hr IV ONETIME ONE Stop: 06/04/20 09:33 Sodium Chloride (Normal Saline) Confirm Administered Dose 20 mls @ as directed .ROUTE .STK-MED ONE Stop: 06/04/20 09:37 Acetaminophen (Ofirmev) Confirm Administered Dose 100 mls @ as directed .ROUTE .STK-MED ONE Stop: 06/04/20 09:56 Lidocaine HCl (Xylocaine-Mpf 1%) Confirm Administered Dose 5 ml .ROUTE .STK-MED ONE Stop: 06/04/20 10:20 Morphine Sulfate (Duramorph Pf) Confirm Administered Dose 10 mg .ROUTE .STK-MED ONE Stop: 06/04/20 09:32 Octyl Cyanoacrylate (Dermabond Advance) Confirm Administered Dose 1 applic .ROUTE .STK-MED ONE Stop: 06/04/20 09:41 Ondansetron HCl (Zofran) Confirm Administered Dose 4 mg .ROUTE .STK-MED ONE Stop: 06/04/20 09:32 Oxytocin (Pitocin) Confirm Administered Dose 30 unit .ROUTE .STK-MED ONE Stop: 06/04/20 09:32 Propofol (Diprivan 20 Ml) Confirm Administered Dose 200 mg .ROUTE .STK-MED ONE Stop: 06/04/20 09:33 - Exam General: Alert, Oriented Neck: Supple Lungs: Clear to Auscultation, Normal Respiratory Effort Cardiovascular: Regular Rate Psy/Mental Status: Alert, Normal Affect, Normal Mood - Problem List & Annotations (1) History of section SNOMED Code(s): 890876498 Code(s): Z98.891 - HISTORY OF UTERINE SCAR FROM PREVIOUS SURGERY Status: Acute Priority: Medium Current Visit: Yes (2) Term SNOMED Code(s): 51537256 Code(s): Z34.90 - ENCNTR FOR SUPRVSN OF NORMAL , UNSP, UNSP TRIMESTER Status: Acute Priority: Medium Current Visit: Yes (3) Active labor at term SNOMED Code(s): 25879267 Code(s): QDX2137 - Status: Acute Priority: High Current Visit: Yes (4) Delivery by section SNOMED Code(s): 280394763 Code(s): TLU5066 - Status: Acute Priority: High Current Visit: Yes - Problem List Review Problem List Initiated/Reviewed/Updated: Yes - My Orders Last 24 Hours: My Active Orders 06/04/20 11:47 Patient Status [ADT] Routine Ambulate [RC] PER UNIT ROUTINE Communication Order [RC] PER UNIT ROUTINE Communication Order [RC] PER UNIT ROUTINE Communication Order [RC] Per Unit Routine Notify Provider Intake and Out [RC] ASDIRECTED Notify Provider Vital Signs [RC] ASDIRECTED RT Incentive Spirometry [RC] Q2HWA Vital Signs [RC] PER UNIT ROUTINE Acetaminophen/oxyCODONE [Percocet 325-5 MG] 1 tab PO Q4H PRN Acetaminophen/oxyCODONE [Percocet 325-5 MG] 2 tab PO Q4H PRN Ibuprofen [Motrin] 800 mg PO Q8H PRN Lanolin [Lansinoh HPA] See Dose Instructions TOP ASDIRECTED PRN Methylergonovine [Methergine] 0.2 mg IM ONETIME PRN Ondansetron [Zofran] 4 mg IVPUSH Q4H PRN Oxytocin [Pitocin] 10 unit IM ASDIRECTED PRN Tranexamic Acid [Cyklokapron] 1,000 mg Sodium Chloride 0.9% [Normal Saline] 100 ml IV ONETIME bisacodyL [Dulcolax] 10 mg RECTAL ONETIME PRN diphenhydrAMINE [Benadryl] 25 mg IVPUSH Q6H PRN miSOPROStoL [Cytotec] 1,000 mcg RECTAL ONETIME PRN Assess Lochia [WOMSER] Per Unit Routine Assess Uterine Involution [WOMSER] Per Unit Routine Breast Pump [WOMSER] Per Unit Routine Peripheral IV Discontinue [OM.PC] Routine Sequential Compression Device [OM.PC] Per Unit Routine 06/04/20 11:48 Antiembolic Devices [RC] PER UNIT ROUTINE 06/04/20 12:00 Ketorolac [Toradol] 30 mg IVPUSH Q6H Lactated Ringers [Ringers, Lactated] 1,000 ml IV ASDIRECTED 06/04/20 21:00 Docusate Sodium [Colace] 100 mg PO BID 06/05/20 05:11 HEMOGLOBIN/HEMATOCRIT,HH [HEME] Timed - Assessment Assessment:: 24yo @ 38w5d GA admitted in labor, scheduled for in 1 week. c/b h/o 16months ago, and obesity. S/P uncomplicated RLTCS - Plan Plan:: Routine care.
[2020-06-04] MEDS: Docusate Sodium 100 MG Cap PO SCH (20:40)
[2020-06-05] MEDS: Ketorolac 30 MG/ML SDV IVPUSH SCH ×2 (05:41→11:49)
[2020-06-05] MEDS: Docusate Sodium 100 MG Cap PO SCH (08:16)
--- NOTE | 2020-06-05 11:12 | PCM48HPAN ---
Post Anesthesia Note - EVALUATION WITHIN 48HRS OF ANESTHETIC Vital Signs in Normal Range: Yes Patient Participated in Evaluation: Yes Respiratory Function Stable: Yes Airway Patent: Yes Cardiovascular Function Stable: Yes Hydration Status Stable: Yes Pain Control Satisfactory: Yes (Some soreness, well controlled.) Nausea and Vomiting Control Satisfactory: Yes Mental Status Recovered: Yes Vital Signs: Last Vital Signs Temp 36.8 C 06/05/20 07:35 Pulse 77 06/05/20 07:35 Resp 17 06/05/20 09:00 BP 121/66 06/05/20 07:35 Pulse Ox 98 06/05/20 09:00
[2020-06-05 12:53] VITALS: BP 123/57; PULSE 82
--- NOTE | 2020-06-05 13:45 | PCM.DCSUM1 ---
Discharge Summary - Hospital Course Free Text/Narrative:: 24yo G3 now P2012 @ 38w5d S/P RLTCS. Patient came in labor. Her c/b h/o 16months ago, and obesity. Patient and baby doing well. course unremarkable. Diagnosis: Stroke: No - Discharge Data Discharge Date: 06/05/20 Discharge Disposition: Home, Self-Care 01 Condition: Good - Referral to Home Health Primary Care Physician: PCP None - Discharge Diagnosis/Problem(s) (1) History of section SNOMED Code(s): 149052687 ICD Code: Z98.891 - HISTORY OF UTERINE SCAR FROM PREVIOUS SURGERY Status: Acute Priority: Medium Current Visit: Yes (2) Term SNOMED Code(s): 97250230 ICD Code: Z34.90 - ENCNTR FOR SUPRVSN OF NORMAL , UNSP, UNSP TRIMESTER Status: Acute Priority: Medium Current Visit: Yes (3) Active labor at term SNOMED Code(s): 15536689 ICD Code: [id number] - Status: Acute Priority: High Current Visit: Yes (4) Delivery by section SNOMED Code(s): 375731711 ICD Code: [id number] - Status: Acute Priority: High Current Visit: Yes - Patient Instructions Diet: Usual Diet as Tolerated Activity: As Tolerated - Discharge Plan *PRESCRIPTION DRUG MONITORING PROGRAM REVIEWED*: Not Applicable *COPY OF PRESCRIPTION DRUG MONITORING REPORT IN PATIENT WILIAN: Not Applicable Home Medications: Home Meds Calcium Carbonate [Tums] 1 tab.chew CHEW ASDIRECTED PRN 06/03/20 [History] Pnv No.95/Ferrous Fum/Folic AC [ Vitamin Tablet] 1 tab PO DAILY 06/03/20 [History] - Discharge Summary/Plan Comment DC Time >30 min.: Yes - General Info Date of Service: 06/05/20 Admission Dx/Problem (Free Text: Patient Status Order with Admit Dx/Problem 06/04/20 08:18 Patient Status [ADT] Routine 06/04/20 09:04 Patient Status [ADT] Routine 06/04/20 11:47 Patient Status [ADT] Routine Admission Diagnosis/Problem Admission Diagnosis/Problem Subjective Update: 24yo G3 now P2012 S/P RLTCS @ 38w5d Patient is doing well. Minimal bleeding, no clots. +Flatus. Voiding and ambulating with no issues. Eating without nausea or vomiting. Functional Status: Reports: Pain Controlled - Review of Systems General: Reports: No Symptoms HEENT: Reports: No Symptoms Pulmonary: Reports: No Symptoms Cardiovascular: Reports: No Symptoms Gastrointestinal: Reports: No Symptoms Genitourinary: Reports: No Symptoms Musculoskeletal: Reports: No Symptoms Neurological: Reports: No Symptoms Psychiatric: Reports: No Symptoms - Patient Data Vitals - Most Recent: Last Vital Signs Temp 98.5 F 06/05/20 12:05 Pulse 82 06/05/20 12:05 Resp 18 06/05/20 12:05 BP 123/57 L 06/05/20 12:05 Pulse Ox 95 06/05/20 12:05 Weight - Most Recent: 122.47 kg I&O - Last 24 hours: Intake & Output 06/04/20 06/05/20 06/05/20 22:59 06:59 14:59 Output Total 250 550 Balance -250 -550 Lab Results - Last 24 hrs: Laboratory Results - last 24 hr 06/05/20 Range/Units 05:26 Hgb 9.8 L (12.0-16.0) g/dL Hct 29.1 L (36.0-46.0) % Med Orders - Current: Current Medications Bisacodyl (Dulcolax) 10 mg RECTAL ONETIME PRN PRN Reason: Constipation Butorphanol Tartrate (Stadol) 1 mg IVPUSH Q1H PRN PRN Reason: Pain Carboprost Tromethamine (Hemabate Ds) 250 mcg IM ASDIRECTED PRN PRN Reason: Post Hemorrhage Diphenhydramine HCl (Benadryl) 25 mg IVPUSH Q6H PRN PRN Reason: Itching or Nausea Docusate Sodium (Colace) 100 mg PO BID [facility] Last Admin: 06/05/20 08:16 Dose: 100 mg Documented by: Emollient Ointment (Lansinoh Hpa) 0 gm TOP ASDIRECTED PRN PRN Reason: Sore Nipples Last Admin: 06/04/20 17:46 Dose: 1 tube Documented by: Fentanyl (Sublimaze) 50 mcg IVPUSH Q1H PRN PRN Reason: Pain (severe 7-10) Lactated Ringer's (Ringers, Lactated) 1,000 mls @ 150 mls/hr IV ASDIRECTED ELOY Oxytocin/Sodium Chloride (Oxytocin 30 Unit/500 Ml-Ns) 30 unit in 500 mls @ 999 mls/hr IV TITRATE [facility] Tranexamic Acid 1,000 mg/ (Sodium Chloride) 110 mls @ 660 mls/hr IV ONETIME PRN PRN Reason: Bleeding Lactated Ringer's (Ringers, Lactated) 1,000 mls @ 500 mls/hr IV BOLUS [facility] Last Infusion: 06/04/20 10:04 Dose: 999 mls/hr Documented by: Lactated Ringer's (Ringers, Lactated) 1,000 mls @ 125 mls/hr IV ASDIRECTED ELOY Last Admin: 06/05/20 02:23 Dose: 125 mls/hr Documented by: Tranexamic Acid 1,000 mg/ (Sodium Chloride) 110 mls @ 660 mls/hr IV ONETIME PRN PRN Reason: Bleeding Ibuprofen (Motrin) 800 mg PO Q8H PRN PRN Reason: mild pain or fever Lidocaine HCl (Xylocaine 1%) 50 ml INJECT ONETIME PRN PRN Reason: Laceration repair Methylergonovine Maleate (Methergine) 0.2 mg IM ASDIRECTED PRN PRN Reason: Post Hemorrhage Methylergonovine Maleate (Methergine) 0.2 mg IM ONETIME PRN PRN Reason: Excessive Vaginal Bleeding Misoprostol (Cytotec) 200 mcg PO ONETIME PRN PRN Reason: Post Hemorrhage Misoprostol (Cytotec) 1,000 mcg RECTAL ONETIME PRN PRN Reason: excessive bleeding Nalbuphine HCl (Nubain) 5 mg IVPUSH ASDIRECTED PRN PRN Reason: Itching Last Admin: 06/04/20 15:30 Dose: 5 mg Documented by: Ondansetron HCl (Zofran) 4 mg IVPUSH Q4H PRN PRN Reason: Nausea/Vomiting Last Admin: 06/04/20 17:46 Dose: 4 mg Documented by: Ondansetron HCl (Zofran) 4 mg IVPUSH Q4H PRN PRN Reason: Nausea/Vomiting Ondansetron HCl (Zofran) 4 mg IVPUSH Q6H PRN PRN Reason: Nausea Oxycodone/Acetaminophen (Percocet 325-5 Mg) 1 tab PO Q4H PRN PRN Reason: Pain (moderate 4-6) Oxycodone/Acetaminophen (Percocet 325-5 Mg) 2 tab PO Q4H PRN PRN Reason: Pain (moderate 4-6) Oxycodone/Acetaminophen (Percocet 325-5 Mg) 2 tab PO Q6H PRN PRN Reason: Pain (moderate 4-6) Oxytocin (Pitocin) 10 unit IM ASDIRECTED PRN PRN Reason: Excessive Vaginal Bleeding Sodium Chloride (Saline Flush) 10 ml FLUSH ASDIRECTED PRN PRN Reason: Keep Vein Open Sodium Chloride (Normal Saline) 10 ml IV ASDIRECTED PRN PRN Reason: IV Use Sterile Water (Sterile Water For Irrigation) 1,000 ml IRR ASDIRECTED PRN PRN Reason: delivery Discontinued Medications Cefazolin Sodium (Ancef) Confirm Administered Dose 2 gm .ROUTE .STK-MED ONE Stop: 06/04/20 09:37 Cefazolin Sodium (Ancef) Confirm Administered Dose 1 gm .ROUTE .STK-MED ONE Stop: 06/04/20 09:40 Citric Acid/Sodium Citrate (Bicitra Solution) 30 ml PO ONETIME ONE Stop: 06/04/20 09:05 Diphenhydramine HCl (Benadryl) 25 mg IVPUSH Q4H PRN PRN Reason: Itching Stop: 06/05/20 12:13 Last Admin: 06/04/20 22:30 Dose: 25 mg Documented by: Ephedrine Sulfate (Ephedrine Sulfate) Confirm Administered Dose 100 mg .ROUTE .STK-MED ONE Stop: 06/04/20 09:32 Cefazolin Sodium/Dextrose 3 gm (/ Premix) 150 mls @ 300 mls/hr IV ONETIME ONE Stop: 06/04/20 09:33 Sodium Chloride (Normal Saline) Confirm Administered Dose 20 mls @ as directed .ROUTE .STK-MED ONE Stop: 06/04/20 09:37 Acetaminophen (Ofirmev) Confirm Administered Dose 100 mls @ as directed .ROUTE .STK-MED ONE Stop: 06/04/20 09:56 Ketorolac Tromethamine (Toradol) 30 mg IVPUSH Q6H ELOY Stop: 06/05/20 12:01 Last Admin: 06/05/20 11:49 Dose: 30 mg Documented by: Lidocaine HCl (Xylocaine-Mpf 1%) Confirm Administered Dose 5 ml .ROUTE .STK-MED ONE Stop: 06/04/20 10:20 Morphine Sulfate (Duramorph Pf) Confirm Administered Dose 10 mg .ROUTE .STK-MED ONE Stop: 06/04/20 09:32 Naloxone HCl (Narcan) 0.1 mg IVPUSH ONETIME PRN PRN Reason: Respiratory Depression Stop: 06/05/20 12:13 Octyl Cyanoacrylate (Dermabond Advance) Confirm Administered Dose 1 applic .ROUTE .STK-MED ONE Stop: 06/04/20 09:41 Ondansetron HCl (Zofran) Confirm Administered Dose 4 mg .ROUTE .STK-MED ONE Stop: 06/04/20 09:32 Oxytocin (Pitocin) Confirm Administered Dose 30 unit .ROUTE .STK-MED ONE Stop: 06/04/20 09:32 Propofol (Diprivan 20 Ml) Confirm Administered Dose 200 mg .ROUTE .STK-MED ONE Stop: 06/04/20 09:33 - Exam General: Reports: Alert, Oriented, No Acute Distress Neck: Reports: Supple Lungs: Reports: Normal Respiratory Effort Cardiovascular: Reports: Regular Rate GI/Abdominal Exam: Soft, Non-Tender Extremities: Normal Inspection Wound/Incisions: Reports: Healing Well Neurological: Reports: No New Focal Deficit Psy/Mental Status: Reports: Alert, Normal Affect, Normal Mood (Fundus palpated below the umbilicus)
--- NOTE | 2020-06-05 14:37 | OR ---
SURGEON: Danielle Odom MD DATE OF PROCEDURE: 06/04/2020 INDICATION FOR SURGERY: Term , active labor, history of primary . PREOPERATIVE DIAGNOSES: Term , active labor, history of prior section. POSTOPERATIVE DIAGNOSES: Term , active labor, history of prior section. OPERATION PERFORMED: section. PRIMARY SURGEON: Danielle Odom MD SENIOR NET DEVELOPER ARCHITECT: Feng Ortega MD ANESTHESIA: Spinal. ESTIMATED BLOOD LOSS: 450 mL. URINE OUTPUT: 75 mL. DRAINS: Simental catheter draining clear urine. SPECIMENS: None. DELIVERY DETAILS: Male baby, scores 8 and 9, weight 7 pounds 9 ounces, estimated blood loss 450 mL, placenta spontaneously delivered. COMPLICATIONS: None. TECHNIQUE: Jeanette Martínez was taken to the operating room. She was then transferred to the operating table and placed in the dorsal supine position with a leftward tilt. After adequate anesthesia was confirmed, she was prepped and draped in the usual sterile fashion. A time-out was completed. A Pfannenstiel skin incision was made. The incision was carried down with the Bovie cautery through the subcutaneous tissue to the underlying rectus fascia. The rectus fascia was then incised in the midline and extended laterally. The underlying muscle was dissected off, the rectus muscles were in the midline, and the parietal peritoneum was opened. A bladder blade and Benitez retractors were placed. The lower uterine segment was identified, and it was incised in a transverse fashion. The incision was extended laterally with cephalocaudal traction. The infant's vertex was delivered atraumatically followed by the remainder of the infant. The cord was clamped and cut and the infant handed off to the pediatric staff. Cord gases were collected. The placenta was delivered spontaneously. The uterus was then cleared of all clots. The incision was reapproximated in a running locked stitch fashion utilizing a 0 Vicryl. A second stitch imbricating the first layer was performed utilizing another 0 Vicryl. Hemostasis was excellent. The gutter was cleared of all clots. The bladder blade and Benitez retractors were removed. The subfascial layer was hemostatic. The peritoneum was closed in a running stitch fashion utilizing a 3- 0 Vicryl. The rectus fascia was reapproximated with a PDS in a running stitch fashion. Subcu tissue was irrigated and closed with a running stitch utilizing a 3-0 Vicryl. Finally, the skin was closed with a Gibran needle in a subcuticular fashion. All sponge, needle, and instrument counts were correct per the OR nursing staff at the end of the procedure. The patient was taken to the recovery room in a stable condition. The patient had received 3 g of Ancef prior to the procedure. [place] /[id number]
== END 2020-06-05 14:43 | disposition home or self-care (01) | DRG 540 ==
LOC: MW.OBCHECK 08:12 → MW.OB 09:24
PROVIDERS: ADMIT Obstetrics & Gynecology; ATTEND Obstetrics & Gynecology
PROC: 10D00Z1 Extraction of Products of Conception, Low, Open Approach (ICD-10-PCS; principal; 2020-06-04)
DX: O34.211 Maternal care for low transverse scar from previous cesarean delivery (principal); Z3A.38 38 weeks gestation of pregnancy; Z37.0 Single live birth; Z20.828 Contact with and (suspected) exposure to other viral communicable diseases
CPT/HCPCS: 36415; 59025; 81003; 85014; 85018; 85027; 86592; 86850; 86900; 86901; A9270-GY; J0131; J0690; J1200; J1885; J2001; J2270; J2300; J2405; J2590; J2704; J7120; U0002

== ENCOUNTER 2023-09-10 05:10 | Inpatient (IN) | payer OTHER ==
[2023-09-10] MEDS: Lactated Ringers 1,000 ML IV SCH ×2 (05:25→11:48)
[2023-09-10] MEDS ORDERED: Ondansetron 4 MG/2 ML SDV IVPUSH PRN ×4 (05:43→10:00)
[2023-09-10] MEDS ORDERED: Citric Acid/Sodium Citrate Solution 30 ML Cup PO ONE (05:43)
[2023-09-10] MEDS ORDERED: Sodium Chloride 0.9% 10 ML Syringe FLUSH PRN ×3 (05:43→15:28)
[2023-09-10] MEDS ORDERED: Sodium Chloride 0.9% 2.5 ML Syringe FLUSH PRN ×2 (05:43→05:52)
[2023-09-10] MEDS ORDERED: Sodium Chloride 0.9% 20 ML SDV IV PRN ×2 (05:43→05:52)
[2023-09-10] MEDS ORDERED: Oxytocin/0.9 % Sodium Chloride 30 UNIT/500 ML BAG IV SCH ×3 (05:45→07:45)
[2023-09-10] MEDS ORDERED: Methylergonovine 0.2 MG/1 ML Amp IM PRN ×2 (05:52→07:31)
[2023-09-10] MEDS ORDERED: Tranexamic Acid IN NACL,ISO-OS 1,000 MG in Premix Bag 1 BAG IV PRN (05:52)
[2023-09-10] MEDS ORDERED: Lidocaine 1% 50 ML MDV INJECT PRN (05:52)
[2023-09-10] MEDS ORDERED: Carboprost Tromethamine 250 MCG/1 mL Vial IM PRN (05:52)
[2023-09-10] MEDS ORDERED: Misoprostol 200 MCG Tab PO PRN (05:52)
[2023-09-10 05:56] LABS: HEMATOCRIT 35.6 % (37.0-47.0); HEMOGLOBIN 12.4 g/dL (12.0-16.0); MEAN CORPUSCULAR HEMOGLOBIN 28.8 pg (28.0-32.0); MEAN CORPUSCULAR HGB CONC 34.8 g/dL (32.0-36.0); MEAN CORPUSCULAR VOLUME 82.6 fL (83.0-99.0); MEAN PLATELET VOLUME 10.3 fL (9.4-12.3); PLATELET COUNT,PLT 334 K/uL (150-400); RED BLOOD CELL COUNT 4.31 M/uL (4.10-5.30); WHITE BLOOD CELL COUNT,WBC 13.78 K/uL (3.9-11.3)
[2023-09-10] MEDS ORDERED: Naloxone 0.4 MG/ML SDV IVPUSH PRN ×2 (07:30→10:00)
[2023-09-10] MEDS ORDERED: fentaNYL 50 MCG/ML SDV IVPUSH PRN ×2 (07:30→10:00)
[2023-09-10] MEDS ORDERED: HYDROmorphone 1 MG/ML Syringe IVPUSH PRN ×2 (07:30→10:00)
[2023-09-10] MEDS ORDERED: droPERidol 5 MG/2 ML SDV IVPUSH PRN ×2 (07:30→10:00)
[2023-09-10] MEDS ORDERED: Albuterol 0.083% 2.5 MG/3 ML Neb Soln NEB PRN ×2 (07:30→10:00)
[2023-09-10] MEDS ORDERED: Metoclopramide 10 MG/2 ML SDV IVPUSH PRN ×2 (07:30→10:00)
[2023-09-10] MEDS ORDERED: Morphine 2 MG/ML SYRINGE IVPUSH PRN ×2 (07:30→10:00)
[2023-09-10] MEDS ORDERED: Bisacodyl 10 MG Supp RECTAL PRN (07:31)
[2023-09-10] MEDS ORDERED: Acetaminophen/oxyCODONE 325-5 MG Tab PO PRN ×3 (07:31→10:00)
[2023-09-10] MEDS ORDERED: Oxytocin 10 Units/1 ML SDV IM PRN (07:31)
[2023-09-10] MEDS ORDERED: Misoprostol 200 MCG Tab RECTAL PRN (07:31)
[2023-09-10] MEDS ORDERED: Lanolin 100% Cream 7 GM Tube TOP PRN (07:31)
[2023-09-10] MEDS ORDERED: diphenhydrAMINE 50 MG/ML SDV IVPUSH PRN ×2 (07:31→10:00)
[2023-09-10] MEDS ORDERED: Temazepam 15 MG Cap PO PRN (07:31)
[2023-09-10] MEDS ORDERED: Ondansetron 4 MG/2 ML SDV ONE (07:41)
[2023-09-10] MEDS ORDERED: Ropivacaine 0.5% 5 MG/ML 30 ML SDV ONE (07:41)
[2023-09-10] MEDS ORDERED: Ketorolac 30 MG/ML SDV ONE (07:41)
[2023-09-10] MEDS ORDERED: Bupivacaine 0.25% 30 ML SDV ONE (07:41)
[2023-09-10] MEDS ORDERED: Morphine PF 10 MG/10 ML SDV ONE (07:41)
[2023-09-10] MEDS ORDERED: ceFAZolin 1 GM Vial ONE (07:41)
[2023-09-10] MEDS ORDERED: fentaNYL 100 MCG/2 ML SDV ONE (07:41)
[2023-09-10] MEDS ORDERED: EPINEPHrine 1 MG/1 ML Amp ONE (07:41)
[2023-09-10] MEDS ORDERED: Oxytocin 10 Units/1 ML SDV ONE (07:41)
[2023-09-10] MEDS ORDERED: Ketorolac 30 MG/ML SDV IVPUSH SCH (07:45)
[2023-09-10] MEDS ORDERED: Phenylephrine 1% 10 MG/ML SDV ONE (07:47)
[2023-09-10] MEDS ORDERED: Scopalamine 1mg/3day Transdermal Patch ONE (08:00)
[2023-09-10] MEDS ORDERED: fentaNYL 100 MCG/2 ML SDV IVPUSH PRN (10:00)
[2023-09-10] MEDS ORDERED: ePHEDrine 50 MG/ML SDV IVPUSH PRN (10:00)
[2023-09-10] MEDS: Simethicone 80 MG Tab.Chew PO SCH (11:53)
[2023-09-10] MEDS: Acetaminophen 1,000 MG in Premix Bag 1 BAG IV SCH ×2 (11:53→18:05)
[2023-09-10] MEDS: Docusate Sodium 100 MG Cap PO SCH (13:04)
[2023-09-10] MEDS: Prenatal Multivitamin with Calcium/Folic Acid/Iron Tab PO SCH (13:04)
[2023-09-10] MEDS: Ketorolac 30 MG/ML SDV IVPUSH SCH (15:05)
[2023-09-10] MEDS: Ferrous Sulfate 325 MG Tab PO SCH (15:06)
[2023-09-11 06:29] LABS: HEMATOCRIT 27.2 % (37.0-47.0); HEMOGLOBIN 9.3 g/dL (12.0-16.0); MEAN CORPUSCULAR HEMOGLOBIN 29.2 pg (28.0-32.0); MEAN CORPUSCULAR HGB CONC 34.2 g/dL (32.0-36.0); MEAN CORPUSCULAR VOLUME 85.3 fL (83.0-99.0); MEAN PLATELET VOLUME 10.2 fL (9.4-12.3); PLATELET COUNT,PLT 263 K/uL (150-400); RED BLOOD CELL COUNT 3.19 M/uL (4.10-5.30); WHITE BLOOD CELL COUNT,WBC 15.56 K/uL (3.9-11.3)
[2023-09-11] MEDS ORDERED: Ibuprofen 800 MG Tab PO PRN (07:31)
[2023-09-11 08:24] VITALS: BP 130/70; PULSE 65
== END 2023-09-11 11:45 | disposition home or self-care (01) | DRG 787 ==
LOC: MW.OB 05:10
PROVIDERS: ADMIT Obstetrics & Gynecology Obstetrics; ATTEND Obstetrics & Gynecology Obstetrics
PROC: 10D00Z1 Extraction of Products of Conception, Low, Open Approach (ICD-10-PCS; principal; 2023-09-10 08:00)
DX: O34.211 Maternal care for low transverse scar from previous cesarean delivery (principal); D62 Acute posthemorrhagic anemia; Z37.0 Single live birth; Z3A.39 39 weeks gestation of pregnancy; O90.81 Anemia of the puerperium; O99.214 Obesity complicating childbirth
CPT/HCPCS: 01961; 36415; 59025; 59514; 64488; 85027; 86592; 86850; 86900; 86901; A9270-GY; J0131; J0171; J0665; J0690; J1100; J1885; J2274; J2371; J2405; J2590; J2795; J3010; J7120

== ENCOUNTER 2023-09-17 21:02 | Emergency (ER) | payer OTHER ==
[2023-09-17] MEDS ORDERED: Sodium Chloride 0.9% 2.5 ML Syringe FLUSH PRN (21:18)
[2023-09-17] MEDS ORDERED: Sodium Chloride 0.9% 10 ML Syringe FLUSH PRN (21:18)
[2023-09-17 21:46] LABS: BASOPHILS ABSOLUTE AUTO 0.04 K/uL (0.00-0.20); BASOPHILS PERCENT AUTO 0.4 % (0.0-1.0); EOSINOPHILS ABSOLUTE AUTO 0.18 K/uL (0.00-0.45); EOSINOPHILS PERCENT AUTO 1.6 % (0.0-6.0); HEMATOCRIT 31.8 % (37.0-47.0); IMMATURE GRAN ABSOLUTE AUTO 0.02 K/uL (0.00-0.05); IMMATURE GRAN PERCENT AUTO 0.2 % (0.0-0.4); LYMPHOCYTES ABSOLUTE AUTO 3.14 K/uL (1.00-4.80); LYMPHOCYTES PERCENT AUTO 28.4 % (24.0-44.0); MEAN CORPUSCULAR HEMOGLOBIN 29.1 pg (28.0-32.0); MEAN CORPUSCULAR HGB CONC 34.6 g/dL (32.0-36.0); MEAN CORPUSCULAR VOLUME 84.1 fL (83.0-99.0); MEAN PLATELET VOLUME 8.9 fL (9.4-12.3); MONOCYTES ABSOLUTE AUTO 0.51 K/uL (0.00-0.80); MONOCYTES PERCENT AUTO 4.6 % (0.0-8.0); NEUTROPHILS ABSOLUTE AUTO 7.15 K/uL (1.80-7.70); NEUTROPHILS PERCENT AUTO 64.8 % (41.0-71.0); PLATELET COUNT,PLT 382 K/uL (150-400); RED BLOOD CELL COUNT 3.78 M/uL (4.10-5.30); WHITE BLOOD CELL COUNT,WBC 11.04 K/uL (3.9-11.3)
[2023-09-17 22:18] LABS: A/G RATIO 0.8 (0.9-1.6); BILIRUBIN TOTAL 0.1 mg/dL (0.2-1.0); CARBON DIOXIDE,CO2 24.7 mmol/L (21.0-32.0); CREATININE 1.1 mg/dL (0.6-1.0); EST CRCL DRUG DOSING (CG) 72.55 mL/min
[2023-09-17 22:23] LABS: LACTIC ACID 0.6 mmol/L (0.4-2.0)
[2023-09-17 22:24] VITALS: BP 135/86; PULSE 59
== END 2023-09-17 22:33 | disposition home or self-care (01) ==
LOC: MW.ED 21:02
DX: O90.89 Other complications of the puerperium, not elsewhere classified (principal); R10.31 Right lower quadrant pain; Z91.030 Bee allergy status; N89.8 Other specified noninflammatory disorders of vagina; Z79.899 Other long term (current) drug therapy; Z75.8 Other problems related to medical facilities and other health care
CPT/HCPCS: 36415; 80053; 83605; 83690; 85025; 99282; 99284

== ENCOUNTER 2024-04-19 23:59 | Emergency (ER) | payer OTHER ==
[2024-04-20] MEDS: Acetaminophen 500 MG Tab PO ONE (01:24)
[2024-04-20] MEDS: Ibuprofen 600 MG Tab PO ONE (01:30)
[2024-04-20 01:48] VITALS: BP 126/51; PULSE 84
== END 2024-04-20 01:44 | disposition home or self-care (01) ==
LOC: MW.ED 23:59
DX: S93.401A Sprain of unspecified ligament of right ankle, initial encounter (principal); E66.9 Obesity, unspecified; Z91.030 Bee allergy status; Z68.41 Body mass index [BMI] 40.0-44.9, adult; X50.9XXA Other and unspecified overexertion or strenuous movements or postures, initial encounter
CPT/HCPCS: 73590; 73610; 73620; 99283; A9270